=== PATIENT | female | born 1935 | race Caucasian/White ===

== ENCOUNTER 2017-08-25 08:24 | Inpatient (IN) | payer MEDICARE ==
[~2017-08-25] VITALS: Ht 162.6 cm; Wt 60.3 kg
[~2017-08-25 08:24] MED LIST: GABA100C PO; METO-282 PO; PANT40TA3 PO; TRAM50TA2 PO
[2017-08-25] MEDS ORDERED: SODIUM CHLORIDE 0.9% 1,000 ML IV ONE (08:31)
[2017-08-25 08:57] LABS: HEMATOCRIT 37.4 % (34.6-47.8); HEMOGLOBIN 12.3 g/dL (11.7-16.4); WHITE BLOOD COUNT 12.9 x10^3/uL (3.4-10)
[2017-08-25] MEDS: PLEASE ENTER HEIGHT AND WEIGHT MC SCH ×2 (09:00→17:00)
[2017-08-25] MEDS ORDERED: MAALOX/HYOSCYAMINE/LIDOCAINE 45 ML BTL PO ONE (09:00)
[2017-08-25] MEDS ORDERED: MAALOX/HYOSCYAMINE/LIDOCAINE 45 ML BTL ONE (09:04)
[2017-08-25 09:09] LABS: ASPARTATE AMINO TRANSFERASE 17 U/L (15-37); BLOOD UREA NITROGEN 23 mg/dL (7-18)
[2017-08-25 09:13] LABS: IS PT STATUS REG ER OR PRE ER? YES
[2017-08-25] MEDS ORDERED: morphine SULFATE 10 MG/ML, 1ML ONE (09:37)
[2017-08-25] MEDS ORDERED: ONDANSETRON 2MG/ML, 2ML ONE (09:37)
[2017-08-25] MEDS: MORPHINE SULFATE 4 MG/ML, 1ML IVPush PRN ×2 (09:38→10:33)
[2017-08-25] MEDS: ONDANSETRON 2MG/ML, 2ML IVPush ONE ×2 (09:38→10:33)
[2017-08-25] MEDS ORDERED: SODIUM CHLORIDE FLUSH 10ML SYR IVF PRN (11:00)
[2017-08-25] MEDS ORDERED: [UNRECOGNIZED DRUG - OTHER] (11:05)
[2017-08-25] MEDS ORDERED: calcium PO (11:05)
[2017-08-25] MEDS ORDERED: VENL37.52 PO (11:05)
[2017-08-25] MEDS ORDERED: vitamin D PO (11:05)
[2017-08-25] MEDS: HYDROmorphone 1 MG/ML, 1ML IM PRN ×2 (11:19→11:28)
[2017-08-25] MEDS ORDERED: HYDROmorphone 1 MG/ML, 1ML ONE ×2 (11:19→11:36)
[2017-08-25] MEDS ORDERED: LABETALOL 5MG/ML, 20ML IVPush PRN (12:30)
[2017-08-25] MEDS ORDERED: ONDANSETRON 2MG/ML, 2ML IVPush PRN (12:30)
[2017-08-25] MEDS ORDERED: ASPIRIN 325 MG TABLET PO ONE (12:30)
[2017-08-25] MEDS ORDERED: ONDANSETRON ODT 4 MG PO PRN (12:30)
[2017-08-25] MEDS ORDERED: NITROGLYCERIN 0.4 MG BOTTLE (25 TABS) SL PRN (12:30)
[2017-08-25] MEDS ORDERED: morphine SULFATE 10 MG/ML, 1ML IVPush PRN (12:30)
[2017-08-25] MEDS ORDERED: HYDROcodone/APAP 5/325 TABLET PO PRN (12:30)
[2017-08-25] MEDS: SODIUM CHLORIDE 0.9% 1,000 ML IV SCH (13:29)
[2017-08-25] MEDS: ASPIRIN 81 MG TABLET EC PO SCH (13:29)
[2017-08-25] MEDS: ENOXAPARIN 40 MG/0.4 ML SQ SCH (13:29)
[2017-08-25 13:37] LABS: ASPARTATE AMINO TRANSFERASE 13 U/L (15-37); BLOOD UREA NITROGEN 21 mg/dL (7-18)
[2017-08-25 13:43] LABS: IS PT STATUS REG ER OR PRE ER? NO
[2017-08-25 14:36] VITALS: BP 103/66
[2017-08-25] MEDS: GABAPENTIN 100 MG CAPSULE PO SCH ×2 (16:14→20:46)
[2017-08-25 19:23] LABS: IS PT STATUS REG ER OR PRE ER? NO
[2017-08-25 20:45] VITALS: BP 132/72
[2017-08-25] MEDS: PANTOPRAZOLE 40 MG IV IVPush SCH (20:46)
[2017-08-26 01:06] VITALS: BP 139/76
[2017-08-26 01:46] VITALS: BP_SYST 139; BP_SYST 152; BP_DIAS 72; BP_DIAS 86; BP_DIAS 87
[2017-08-26 01:47] VITALS: BP 159/82
[2017-08-26] MEDS: SODIUM CHLORIDE 0.9% 1,000 ML IV SCH (03:27)
[2017-08-26 05:18] LABS: HEMATOCRIT 30.5 % (34.6-47.8); HEMOGLOBIN 10.2 g/dL (11.7-16.4); WHITE BLOOD COUNT 7.6 x10^3/uL (3.4-10)
[2017-08-26 05:30] LABS: BLOOD UREA NITROGEN 25 mg/dL (7-18)
[2017-08-26 05:34] LABS: ASPARTATE AMINO TRANSFERASE 10 U/L (15-37)
[2017-08-26 07:17] VITALS: BP 106/63
[2017-08-26] MEDS: ASPIRIN 81 MG TABLET EC PO SCH (07:51)
[2017-08-26] MEDS: GABAPENTIN 100 MG CAPSULE PO SCH ×3 (07:51→21:29)
[2017-08-26] MEDS: PANTOPRAZOLE 40 MG IV IVPush SCH (07:51)
[2017-08-26] MEDS: VENLAFAXINE XR 37.5MG CAP.ER.24H PO SCH (07:51)
[2017-08-26] MEDS ORDERED: REGADENOSON 0.4 MG/5 ML SYRINGE ONE (08:05)
[2017-08-26 13:10] VITALS: BP 134/76
[2017-08-26] MEDS: ENOXAPARIN 40 MG/0.4 ML SQ SCH (13:31)
[2017-08-26] MEDS ORDERED: SODIUM CHLORIDE 0.9% 1,000 ML IV SCH (14:00)
[2017-08-26] MEDS ORDERED: MAALOX/HYOSCYAMINE/LIDOCAINE 45 ML BTL PO ONE (19:30)
[2017-08-26 19:39] VITALS: BP 134/72
[2017-08-26] MEDS: CALCIUM CARBONATE 500 MG TAB.CHEW PO SCH (21:29)
[2017-08-26] MEDS: FUROSEMIDE 40 MG/4 ML IV SCH (21:31)
[2017-08-27 02:33] VITALS: BP 116/66
[2017-08-27] MEDS: TEMAZEPAM 15 MG CAPSULE PO PRN ×2 (02:41→21:12)
[2017-08-27 06:25] LABS: HEMATOCRIT 32.7 % (34.6-47.8); HEMOGLOBIN 10.8 g/dL (11.7-16.4); WHITE BLOOD COUNT 7.7 x10^3/uL (3.4-10)
[2017-08-27] MEDS: FUROSEMIDE 40 MG/4 ML IV SCH (06:30)
[2017-08-27] MEDS: ASPIRIN 81 MG TABLET EC PO SCH (06:30)
[2017-08-27 06:46] LABS: ASPARTATE AMINO TRANSFERASE 24 U/L (15-37); BLOOD UREA NITROGEN 24 mg/dL (7-18)
[2017-08-27] MEDS: CALCIUM CARBONATE 500 MG TAB.CHEW PO SCH ×2 (09:28→22:08)
[2017-08-27] MEDS: GABAPENTIN 100 MG CAPSULE PO SCH ×3 (09:28→21:12)
[2017-08-27] MEDS: VENLAFAXINE XR 37.5MG CAP.ER.24H PO SCH (09:28)
[2017-08-27 09:30] VITALS: BP 131/76
[2017-08-27] MEDS ORDERED: POLYETHYLENE GLYCOL 17 GM PACKET NG ONE (10:00)
[2017-08-27] MEDS: ENOXAPARIN 40 MG/0.4 ML SQ SCH (13:36)
[2017-08-27 19:42] VITALS: BP 135/79
[2017-08-28 01:21] VITALS: BP 144/81
[2017-08-28] MEDS: ASPIRIN 81 MG TABLET EC PO SCH (06:08)
[2017-08-28 07:23] VITALS: BP 144/81
[2017-08-28] MEDS: FUROSEMIDE 40 MG/4 ML IV SCH (08:45)
[2017-08-28] MEDS: VENLAFAXINE XR 37.5MG CAP.ER.24H PO SCH (08:45)
[2017-08-28] MEDS: CALCIUM CARBONATE 500 MG TAB.CHEW PO SCH ×2 (08:45→21:03)
[2017-08-28] MEDS: GABAPENTIN 100 MG CAPSULE PO SCH ×3 (08:45→21:03)
[2017-08-28 13:12] LABS: BLOOD UREA NITROGEN 23 mg/dL (7-18)
[2017-08-28 13:49] VITALS: BP 123/72
[2017-08-28] MEDS: ENOXAPARIN 40 MG/0.4 ML SQ SCH (16:44)
[2017-08-28 18:56] VITALS: BP 148/72
[2017-08-28] MEDS: TEMAZEPAM 15 MG CAPSULE PO PRN (21:30)
[2017-08-29 01:15] VITALS: BP 145/80
[2017-08-29 04:57] LABS: HEMATOCRIT 35.8 % (34.6-47.8); HEMOGLOBIN 11.9 g/dL (11.7-16.4); WHITE BLOOD COUNT 5.8 x10^3/uL (3.4-10)
[2017-08-29 05:03] LABS: BLOOD UREA NITROGEN 26 mg/dL (7-18)
[2017-08-29] MEDS: ASPIRIN 81 MG TABLET EC PO SCH (05:48)
[2017-08-29 07:42] VITALS: BP 138/74
[2017-08-29] MEDS: GABAPENTIN 100 MG CAPSULE PO SCH (09:56)
[2017-08-29] MEDS: VENLAFAXINE XR 37.5MG CAP.ER.24H PO SCH (09:57)
[2017-08-29] MEDS: CALCIUM CARBONATE 500 MG TAB.CHEW PO SCH (09:57)
[2017-08-29 14:01] VITALS: BP 145/77
[2017-08-29] MEDS ORDERED: CALC200T24 PO (14:22)
[2017-08-29] MEDS ORDERED: ASPI-621 PO (14:22)
[2017-08-29] MEDS ORDERED: ATOR20TA9 PO (14:23)
== END 2017-08-29 15:38 | disposition home or self-care (01) | DRG 391 ==
LOC: ED 08:38 → EDIP 10:40 → 5SO 11:51 → 3NW 08-27 15:45 → DCLOUNGE 08-29 15:17
PROVIDERS: ADMIT Hospitalist; ATTEND Hospitalist
DX: K21.9 Gastro-esophageal reflux disease without esophagitis (principal); N17.0 Acute kidney failure with tubular necrosis; J90 Pleural effusion, not elsewhere classified; E44.0 Moderate protein-calorie malnutrition; G62.9 Polyneuropathy, unspecified; D64.9 Anemia, unspecified; Z88.5 Allergy status to narcotic agent; Z88.2 Allergy status to sulfonamides; Z88.8 Allergy status to other drugs, medicaments and biological substances; D72.829 Elevated white blood cell count, unspecified; E73.9 Lactose intolerance, unspecified; G89.29 Other chronic pain; H91.90 Unspecified hearing loss, unspecified ear; I10 Essential (primary) hypertension; K22.70 Barrett's esophagus without dysplasia; M06.9 Rheumatoid arthritis, unspecified; Z79.82 Long term (current) use of aspirin; Z85.3 Personal history of malignant neoplasm of breast; Z96.619 Presence of unspecified artificial shoulder joint; Z96.643 Presence of artificial hip joint, bilateral; Z98.1 Arthrodesis status; Z91.81 History of falling; Z68.22 Body mass index [BMI] 22.0-22.9, adult
CPT/HCPCS: 36415; 71010; 71020; 71275; 78452; 80048; 80053; 80061; 82040; 83036; 83690; 83735; 84484; 85025; 85610; 85730; 93005; 93017; 93306; 93922; 93925; 96361; 96372; 96374; 96375; J1170; J1650; J1940; J2405; J2785; A9502; C9113; C9898; J7030

== ENCOUNTER 2018-02-16 18:03 | Inpatient (IN) | payer MEDICARE ==
[~2018-02-16] VITALS: Ht 162.6 cm; Wt 55.0 kg
[~2018-02-16 18:03] MED LIST changes: +ASPI-621 PO; +ATOR20TA9 PO; +CALC200T24 PO; +VENL37.52 PO; +[UNRECOGNIZED DRUG - OTHER]; +calcium PO; +vitamin D PO
[2018-02-16] MEDS ORDERED: METOCLOPRAMIDE 5 MG/ML, 2ML ONE ×2 (18:29→19:58)
[2018-02-16] MEDS ORDERED: FAMOTIDINE 20 MG/2 ML ONE (18:29)
[2018-02-16] MEDS ORDERED: METOCLOPRAMIDE 5 MG/ML, 2ML IVPush ONE ×2 (18:30→20:00)
[2018-02-16] MEDS ORDERED: SODIUM CHLORIDE 0.9% 1,000ML IVBOLUS ONE (18:30)
[2018-02-16] MEDS ORDERED: SODIUM CHLORIDE FLUSH 10ML SYR IVF ONE (18:30)
[2018-02-16] MEDS ORDERED: FAMOTIDINE 20 MG/2 ML IVP ONE (18:30)
[2018-02-16 18:48] LABS: BASOPHILS # (AUTO) 0.03 x10^3/uL (0-0.1); BASOPHILS % (AUTO) 0 % (0-1); EOSINOPHILS # (AUTO) 0.01 x10^3/uL (0-0.4); EOSINOPHILS % (AUTO) 0 % (1-7); LYMPHOCYTES # (AUTO) 1.12 x10^3/uL (1-3.4); LYMPHOCYTES % (AUTO) 18 % (22-44); MD NO; MEAN CORPUSCULAR VOLUME 87.9 fL (80-100); MEAN PLATELET VOLUME 7.7 fL (7.4-10.4); MONOCYTES # (AUTO) 0.27 x10^3/uL (0.2-0.8); MONOCYTES % (AUTO) 4 % (2-9); NEUTROPHILS # (AUTO) 4.95 x10^3/uL (1.8-6.8); NEUTROPHILS % (AUTO) 78 % (42-75); PLATELET COUNT 263 x10^3/uL (130-400); RED BLOOD COUNT 4.37 x10^6/uL (3.82-5.3); RED CELL DISTRIBUTION WIDTH 17.8 % (9.6-15.2)
[2018-02-16 18:57] LABS: ALBUMIN 3.2 g/dL (3.4-5.0); ANION GAP 9 mmol/L (5-15); CALCIUM 9.5 mg/dL (8.5-10.1); CHLORIDE 107 mmol/L (98-107)
[2018-02-16 19:05] LABS: ALANINE AMINOTRANSFERASE 21 U/L (12-78); ALKALINE PHOSPHATASE 87 U/L (45-117); BILIRUBIN,TOTAL 0.9 mg/dL (0.2-1.0); CREATININE 1.12 mg/dL (0.55-1.02); TOTAL PROTEIN 7.6 g/dL (6.4-8.2)
[2018-02-16 19:25] LABS: MICROSCOPIC NOT IND
[2018-02-16 19:29] LABS: CULTURE INDICATED? NO
[2018-02-16 20:15] VITALS: BP 147/69
[2018-02-16] MEDS ORDERED: morphine SULFATE 10 MG/ML, 1ML IVPush PRN (21:00)
[2018-02-16] MEDS ORDERED: LABETALOL 5MG/ML, 20ML IVPush PRN (21:00)
[2018-02-16] MEDS ORDERED: POLYETHYLENE GLYCOL 17 GM PACKET PO PRN (21:00)
[2018-02-16] MEDS ORDERED: ONDANSETRON 2MG/ML, 2ML IVPush PRN (21:00)
[2018-02-16] MEDS ORDERED: hydrALAzine 20 MG/ML, 1ML IVPush PRN (21:00)
[2018-02-16] MEDS ORDERED: MAGNESIUM CITRATE 300ML ORAL SOL PO ONE (21:00)
[2018-02-16] MEDS ORDERED: BISACODYL 10 MG SUPP PR ONE (21:00)
[2018-02-16] MEDS ORDERED: PROMETHAZINE 25 MG/ML, 1ML IM PRN (21:00)
[2018-02-16] MEDS ORDERED: BISACODYL 10 MG SUPP PR PRN (21:00)
[2018-02-16 21:06] LABS: FREE T4 (FREE THYROXINE) 0.8 ng/dL (0.76-1.46); THYROID STIMULATING HORMONE 3.4 mIU/L (0.358-3.740)
[2018-02-16] MEDS: HEPARIN 5,000 UNITS/ML, 1ML SQ SCH (22:00)
[2018-02-16] MEDS: GABAPENTIN 100 MG CAPSULE PO SCH (22:00)
[2018-02-16] MEDS: PANTOPRAZOLE 40 MG IV IVPush SCH (22:00)
[2018-02-16] MEDS: SODIUM CHLORIDE 0.9% 1,000 ML IV SCH (22:28)
[2018-02-16 22:40] VITALS: BP 152/76
[2018-02-16] MEDS: ONDANSETRON ODT 4 MG PO PRN (23:13)
[2018-02-17 02:01] VITALS: BP 152/71
[2018-02-17 04:34] LABS: BASOPHILS # (AUTO) 0.03 x10^3/uL (0-0.1); BASOPHILS % (AUTO) 0 % (0-1); EOSINOPHILS % (AUTO) 0 % (1-7); LYMPHOCYTES # (AUTO) 1.74 x10^3/uL (1-3.4); LYMPHOCYTES % (AUTO) 23 % (22-44); MD NO; MEAN CORPUSCULAR HEMOGLOBIN 28.4 pg (27.0-34.8); MEAN CORPUSCULAR HGB CONC 32.6 g/dL (32.4-35.8); MEAN CORPUSCULAR VOLUME 87.2 fL (80-100); MEAN PLATELET VOLUME 7.9 fL (7.4-10.4); MONOCYTES # (AUTO) 0.49 x10^3/uL (0.2-0.8); MONOCYTES % (AUTO) 7 % (2-9); NEUTROPHILS # (AUTO) 5.31 x10^3/uL (1.8-6.8); NEUTROPHILS % (AUTO) 70 % (42-75); PLATELET COUNT 239 x10^3/uL (130-400); RED BLOOD COUNT 3.96 x10^6/uL (3.82-5.3); RED CELL DISTRIBUTION WIDTH 18.2 % (9.6-15.2)
[2018-02-17 04:46] LABS: CHLORIDE 108 mmol/L (98-107)
[2018-02-17 04:53] LABS: ALANINE AMINOTRANSFERASE 19 U/L (12-78); ALBUMIN 2.9 g/dL (3.4-5.0); ALKALINE PHOSPHATASE 73 U/L (45-117); ANION GAP 8 mmol/L (5-15); BILIRUBIN,TOTAL 0.5 mg/dL (0.2-1.0); CALCIUM 8.5 mg/dL (8.5-10.1); CHOL/HDL RATIO 2.3; CHOLESTEROL, TOTAL 192 mg/dL (140-239); CREATININE 0.98 mg/dL (0.55-1.02); HDL CHOL % 43 % (28-40); HDL CHOLESTEROL (DIRECT) 82 mg/dL (40-60); TOTAL PROTEIN 6.7 g/dL (6.4-8.2); TRIGLYCERIDES 78 mg/dL (50-200); VLDL CHOLESTEROL 16 mg/dL (0-25)
[2018-02-17 04:54] LABS: LDL CHOLESTEROL,CALCULATED 94 mg/dL (54-169); LDL/HDL RATIO 1.1 (0.5-3.0)
[2018-02-17] MEDS: ONDANSETRON ODT 4 MG PO PRN (05:20)
[2018-02-17] MEDS: SODIUM CHLORIDE 0.9% 1,000 ML IV SCH (05:20)
[2018-02-17] MEDS: HEPARIN 5,000 UNITS/ML, 1ML SQ SCH ×3 (05:21→21:08)
[2018-02-17 08:35] VITALS: BP 171/82
[2018-02-17] MEDS: GABAPENTIN 100 MG CAPSULE PO SCH ×3 (10:14→21:08)
[2018-02-17] MEDS: PANTOPRAZOLE 40 MG IV IVPush SCH ×2 (10:14→21:07)
[2018-02-17] MEDS: SENNA/DOCUSATE TABLET PO SCH (10:15)
[2018-02-17] MEDS ORDERED: MAGNESIUM CITRATE 300ML ORAL SOL PO ONE (12:30)
[2018-02-17 15:17] VITALS: BP 159/80
[2018-02-17 16:48] LABS: MICROSCOPIC AUTO
[2018-02-17 16:49] LABS: CULTURE INDICATED? YES
[2018-02-17 19:02] VITALS: BP 160/79
[2018-02-17 23:57] VITALS: BP 166/79
[2018-02-18] MEDS: HEPARIN 5,000 UNITS/ML, 1ML SQ SCH ×3 (05:07→21:34)
[2018-02-18 07:38] VITALS: BP 144/85
[2018-02-18] MEDS: SENNA/DOCUSATE TABLET PO SCH (08:05)
[2018-02-18] MEDS: GABAPENTIN 100 MG CAPSULE PO SCH ×3 (08:05→21:34)
[2018-02-18] MEDS: PANTOPRAZOLE 40 MG IV IVPush SCH ×2 (08:05→21:33)
[2018-02-18 13:03] VITALS: BP 159/80
[2018-02-18] MEDS ORDERED: KETOROLAC 30 MG/1 ML IVPush PRN (16:00)
[2018-02-18 19:02] VITALS: BP 152/79
[2018-02-19 00:49] VITALS: BP 175/79
[2018-02-19] MEDS: HEPARIN 5,000 UNITS/ML, 1ML SQ SCH ×2 (05:21→13:00)
[2018-02-19 07:07] VITALS: BP 147/76
[2018-02-19] MEDS: PANTOPRAZOLE 40 MG IV IVPush SCH (08:05)
[2018-02-19] MEDS: SENNA/DOCUSATE TABLET PO SCH (08:06)
[2018-02-19] MEDS: GABAPENTIN 100 MG CAPSULE PO SCH ×2 (08:06→16:05)
[2018-02-19 13:27] VITALS: BP 152/79
[2018-02-19] MEDS ORDERED: PANTOPROZOLE 40MG TABLET PO SCH (21:00)
== END 2018-02-19 17:10 | disposition home health service (06) | DRG 392 ==
LOC: ED 20:48 → 3NW 21:39
PROVIDERS: ADMIT Internal Medicine; ATTEND Internal Medicine
DX: K59.00 Constipation, unspecified (principal); E44.0 Moderate protein-calorie malnutrition; G62.9 Polyneuropathy, unspecified; E86.0 Dehydration; R11.2 Nausea with vomiting, unspecified; I12.9 Hypertensive chronic kidney disease with stage 1 through stage 4 chronic kidney disease, or unspecified chronic kidney disease; K21.9 Gastro-esophageal reflux disease without esophagitis; G43.909 Migraine, unspecified, not intractable, without status migrainosus; G89.29 Other chronic pain; M06.9 Rheumatoid arthritis, unspecified; N18.3 Chronic kidney disease, stage 3 (moderate); Z85.3 Personal history of malignant neoplasm of breast; Z90.12 Acquired absence of left breast and nipple; Z98.1 Arthrodesis status; Z96.643 Presence of artificial hip joint, bilateral; Z96.612 Presence of left artificial shoulder joint; Z96.611 Presence of right artificial shoulder joint; Z90.710 Acquired absence of both cervix and uterus; Z88.6 Allergy status to analgesic agent; Z88.2 Allergy status to sulfonamides; Z88.8 Allergy status to other drugs, medicaments and biological substances; Z68.20 Body mass index [BMI] 20.0-20.9, adult
CPT/HCPCS: 36415; 74176; 80053; 80061; 81001; 81003; 83036; 83690; 83735; 84439; 84443; 85025; 87086; 96361; 96374; 96375; 96376; 99285; J1644; J1885; J2550; Q0162; C9113; J0360; J2270; J2765; J7030; S0028

== ENCOUNTER 2018-07-28 19:14 | Emergency (ER) | payer MEDICARE ==
[~2018-07-28] VITALS: Ht 162.6 cm; Wt 58.3 kg
[2018-07-28 19:31] VITALS: BP 167/74
[2018-07-28 19:54] LABS: BASOPHILS # (AUTO) 0.05 x10^3/uL (0-0.1); BASOPHILS % (AUTO) 0 % (0-1); EOSINOPHILS # (AUTO) 0.06 x10^3/uL (0-0.4); EOSINOPHILS % (AUTO) 1 % (1-7); LYMPHOCYTES # (AUTO) 1.94 x10^3/uL (1-3.4); LYMPHOCYTES % (AUTO) 18 % (22-44); MD NO; MEAN CORPUSCULAR HEMOGLOBIN 30.1 pg (27.0-34.8); MEAN CORPUSCULAR VOLUME 91.2 fL (80-100); MEAN PLATELET VOLUME 7.4 fL (7.4-10.4); MONOCYTES # (AUTO) 0.62 x10^3/uL (0.2-0.8); MONOCYTES % (AUTO) 6 % (2-9); NEUTROPHILS # (AUTO) 8.43 x10^3/uL (1.8-6.8); NEUTROPHILS % (AUTO) 76 % (42-75); PLATELET COUNT 292 x10^3/uL (130-400); RED BLOOD COUNT 3.86 x10^6/uL (3.82-5.3); RED CELL DISTRIBUTION WIDTH 17.7 % (9.6-15.2)
[2018-07-28 20:03] LABS: ALANINE AMINOTRANSFERASE 21 U/L (12-78); ALBUMIN 3.2 g/dL (3.4-5.0); ANION GAP 8 mmol/L (5-15); CALCIUM 8.8 mg/dL (8.5-10.1); CHLORIDE 109 mmol/L (98-107); CREATININE 1.27 mg/dL (0.55-1.02)
[2018-07-28 20:06] LABS: ALKALINE PHOSPHATASE 112 U/L (45-117); BILIRUBIN,TOTAL 0.4 mg/dL (0.2-1.0); TOTAL PROTEIN 7.6 g/dL (6.4-8.2)
[2018-07-28] MEDS ORDERED: CLINDAMYCIN 300 MG CAPSULE ONE (20:11)
[2018-07-28] MEDS ORDERED: CLINDAMYCIN 300 MG CAPSULE PO ONE (20:30)
== END 2018-07-28 21:53 | disposition home or self-care (01) ==
LOC: ED 21:47
DX: L03.116 Cellulitis of left lower limb (principal); I10 Essential (primary) hypertension; G89.29 Other chronic pain
CPT/HCPCS: 36415; 80053; 85025; 87070; 87077; 87186; 87205; 99285

== ENCOUNTER 2018-10-03 15:15 | Inpatient (IN) | payer MEDICARE ==
[~2018-10-03] VITALS: Ht 162.6 cm; Wt 60.4 kg
[~2018-10-03 15:15] MED LIST changes: -ASPI-621 PO; +ASPI81TA45 PO; +ATOR20TA37 PO; -ATOR20TA9 PO
--- NOTE | 2018-10-03 15:31 | NUR ---
DR MUKHERJEE AT BEDSIDE. CULTURE OBTAINED FROM LLE WOUND.
[2018-10-03] MEDS ORDERED: HYDROmorphone 2 MG/ML, 1ML ONE (15:55)
[2018-10-03] MEDS ORDERED: VANCOMYCIN 1,200 MG in SODIUM CHLORIDE 0.9% 250 ML IV ONE (16:00)
[2018-10-03] MEDS ORDERED: HYDROmorphone 2 MG/ML, 1ML IVPush ONE (16:00)
[2018-10-03] MEDS ORDERED: PHARMACOKINETIC CONSULTATION MC ONE ×2 (16:00→20:30)
[2018-10-03] MEDS ORDERED: PIPERACILLIN/TAZO/PMX 3.375GM 50 ML IVPB ONE (16:00)
[2018-10-03] MEDS ORDERED: VANCOMYCIN PER PHARMACY IV ONE (16:00)
[2018-10-03] MEDS ORDERED: PIPERACILLIN/TAZO/PMX 3.375GM 50 ML ONE (16:17)
[2018-10-03 16:20] LABS: BASOPHILS # (AUTO) 0.02 x10^3/uL (0-0.1); BASOPHILS % (AUTO) 0 % (0-1); EOSINOPHILS # (AUTO) 0.02 x10^3/uL (0-0.4); EOSINOPHILS % (AUTO) 0 % (1-7); LYMPHOCYTES # (AUTO) 1.58 x10^3/uL (1-3.4); LYMPHOCYTES % (AUTO) 17 % (22-44); MD NO; MEAN CORPUSCULAR HEMOGLOBIN 29.7 pg (27.0-34.8); MEAN CORPUSCULAR HGB CONC 32.1 g/dL (32.4-35.8); MEAN CORPUSCULAR VOLUME 92.4 fL (80-100); MONOCYTES # (AUTO) 0.45 x10^3/uL (0.2-0.8); MONOCYTES % (AUTO) 5 % (2-9); NEUTROPHILS # (AUTO) 7.33 x10^3/uL (1.8-6.8); NEUTROPHILS % (AUTO) 78 % (42-75); PLATELET COUNT 325 x10^3/uL (130-400); RED BLOOD COUNT 4.02 x10^6/uL (3.82-5.3); RED CELL DISTRIBUTION WIDTH 17.3 % (9.6-15.2)
--- NOTE | 2018-10-03 16:23 | NUR ---
US TECH AT BEDSIDE
[2018-10-03 16:26] LABS: INTERNATIONAL NORMALIZED RATIO 0.97 (0.93-1.1); PROTHROMBIN TIME 10.3 Seconds (9.6-11.5)
[2018-10-03 16:29] LABS: ALANINE AMINOTRANSFERASE 24 U/L (12-78); ALBUMIN 3.3 g/dL (3.4-5.0); ANION GAP 9 mmol/L (5-15); CALCIUM 8.7 mg/dL (8.5-10.1); CHLORIDE 108 mmol/L (98-107)
[2018-10-03 16:30] LABS: HCT (SEDRATE) 37.1 % (34.6-47.8)
--- NOTE | 2018-10-03 16:30 | NUR ---
PT WRITHING IN BED, WON'T HOLD STILL FOR US D/T PAIN. AWARE. 1 MG ATIVAN ORDERED.
[2018-10-03 16:35] LABS: ALKALINE PHOSPHATASE 101 U/L (45-117); BILIRUBIN,TOTAL 0.3 mg/dL (0.2-1.0); TOTAL PROTEIN 7.7 g/dL (6.4-8.2)
[2018-10-03] MEDS ORDERED: LORazepam 2 MG/ML, 1ML ONE (16:36)
[2018-10-03] MEDS ORDERED: SODIUM CHLORIDE 0.9% 1,000 ML IV SCH (17:25)
[2018-10-03] MEDS ORDERED: hydrALAzine 20 MG/ML, 1ML IVPush PRN (17:30)
[2018-10-03] MEDS ORDERED: BISACODYL 10 MG SUPP PR PRN (17:30)
[2018-10-03] MEDS: PIPERACILLIN/TAZO/PMX 3.375GM 50 ML IV SCH ×2 (17:30→23:23)
[2018-10-03] MEDS ORDERED: ONDANSETRON ODT 4 MG PO PRN (17:30)
[2018-10-03] MEDS ORDERED: ENALAPRILAT 1.25 MG/ML, 2ML IVPush PRN (17:30)
[2018-10-03] MEDS ORDERED: VANCOMYCIN PER PHARMACY MC PRN (17:30)
[2018-10-03] MEDS ORDERED: ACETAMINOPHEN 325 MG TABLET PO PRN (17:30)
[2018-10-03] MEDS ORDERED: DOCUSATE 100 MG CAPSULE PO PRN (17:30)
[2018-10-03] MEDS ORDERED: ONDANSETRON 2MG/ML, 2ML IVPush PRN (17:30)
--- NOTE | 2018-10-03 17:42 | NUR ---
pt drowsy from dilaudid, ativan, but arouseable to stimuli. vs stable.
[2018-10-03] MEDS ORDERED: LORazepam 2 MG/ML, 1ML IVPush ONE (18:00)
[2018-10-03] MEDS: morphine SULFATE 10 MG/ML, 1ML IVPush PRN (20:16)
[2018-10-03] MEDS ORDERED: PHARMACOKINETIC MONITORING MC PRN (20:30)
[2018-10-03] MEDS ORDERED: VANCOMYCIN 1,200 MG in SODIUM CHLORIDE 0.9% 250 ML IV SCH (20:30)
[2018-10-03 20:37] VITALS: BP 156/75
[2018-10-03] MEDS: GABAPENTIN 100 MG CAPSULE PO SCH (22:01)
[2018-10-03] MEDS: HEPARIN 5,000 UNITS/ML, 1ML SQ SCH (22:01)
[2018-10-04] MEDS: morphine SULFATE 10 MG/ML, 1ML IVPush PRN ×4 (00:32→17:26)
[2018-10-04 03:19] VITALS: BP 148/70
[2018-10-04 05:00] LABS: BASOPHILS # (AUTO) 0.02 x10^3/uL (0-0.1); BASOPHILS % (AUTO) 0 % (0-1); EOSINOPHILS % (AUTO) 0 % (1-7); LYMPHOCYTES # (AUTO) 0.94 x10^3/uL (1-3.4); LYMPHOCYTES % (AUTO) 11 % (22-44); MD NO; MEAN CORPUSCULAR HEMOGLOBIN 30.4 pg (27.0-34.8); MEAN CORPUSCULAR HGB CONC 33.2 g/dL (32.4-35.8); MEAN CORPUSCULAR VOLUME 91.6 fL (80-100); MONOCYTES # (AUTO) 0.57 x10^3/uL (0.2-0.8); MONOCYTES % (AUTO) 6 % (2-9); NEUTROPHILS # (AUTO) 7.43 x10^3/uL (1.8-6.8); NEUTROPHILS % (AUTO) 83 % (42-75); PLATELET COUNT 244 x10^3/uL (130-400); RED BLOOD COUNT 3.51 x10^6/uL (3.82-5.3); RED CELL DISTRIBUTION WIDTH 17.6 % (9.6-15.2)
[2018-10-04 05:08] LABS: ANION GAP 7 mmol/L (5-15); CALCIUM 7.9 mg/dL (8.5-10.1); CHLORIDE 110 mmol/L (98-107); CREATININE 1.14 mg/dL (0.55-1.02)
[2018-10-04] MEDS: PIPERACILLIN/TAZO/PMX 3.375GM 50 ML IV SCH ×4 (05:32→23:40)
[2018-10-04] MEDS: HEPARIN 5,000 UNITS/ML, 1ML SQ SCH ×3 (05:33→20:48)
[2018-10-04 06:55] VITALS: BP 137/71
[2018-10-04] MEDS: PANTOPROZOLE 40MG TABLET PO SCH (07:44)
[2018-10-04] MEDS: SENNA/DOCUSATE TABLET PO SCH (09:13)
[2018-10-04] MEDS: GABAPENTIN 100 MG CAPSULE PO SCH ×3 (09:13→20:47)
[2018-10-04 13:04] VITALS: BP 116/67
[2018-10-04] MEDS ORDERED: SODIUM CHLORIDE 0.9% 1,000 ML IV SCH (17:30)
[2018-10-04] MEDS: SODIUM CHLORIDE 0.9% 1,000 ML IV SCH (17:35)
[2018-10-04 19:45] VITALS: BP 124/71
[2018-10-05 02:21] VITALS: BP 147/79
[2018-10-05 05:11] LABS: BASOPHILS # (AUTO) 0.04 x10^3/uL (0-0.1); BASOPHILS % (AUTO) 1 % (0-1); EOSINOPHILS # (AUTO) 0.13 x10^3/uL (0-0.4); EOSINOPHILS % (AUTO) 2 % (1-7); LYMPHOCYTES # (AUTO) 1.62 x10^3/uL (1-3.4); LYMPHOCYTES % (AUTO) 23 % (22-44); MD NO; MEAN CORPUSCULAR HEMOGLOBIN 30.4 pg (27.0-34.8); MEAN CORPUSCULAR VOLUME 92.2 fL (80-100); MEAN PLATELET VOLUME 6.8 fL (7.4-10.4); MONOCYTES # (AUTO) 0.53 x10^3/uL (0.2-0.8); MONOCYTES % (AUTO) 8 % (2-9); NEUTROPHILS # (AUTO) 4.62 x10^3/uL (1.8-6.8); NEUTROPHILS % (AUTO) 67 % (42-75); PLATELET COUNT 234 x10^3/uL (130-400); RED BLOOD COUNT 3.45 x10^6/uL (3.82-5.3)
[2018-10-05 05:13] LABS: ANION GAP 8 mmol/L (5-15); CALCIUM 8.3 mg/dL (8.5-10.1); CHLORIDE 110 mmol/L (98-107); CREATININE 1.17 mg/dL (0.55-1.02)
[2018-10-05] MEDS: PIPERACILLIN/TAZO/PMX 3.375GM 50 ML IV SCH ×3 (05:20→17:43)
[2018-10-05] MEDS: HEPARIN 5,000 UNITS/ML, 1ML SQ SCH ×3 (05:21→20:46)
[2018-10-05 07:10] VITALS: BP 113/67
[2018-10-05] MEDS: SODIUM CHLORIDE 0.9% 1,000 ML IV SCH (07:14)
[2018-10-05] MEDS: PANTOPROZOLE 40MG TABLET PO SCH (07:40)
[2018-10-05] MEDS: morphine SULFATE 10 MG/ML, 1ML IVPush PRN (07:40)
[2018-10-05] MEDS: SENNA/DOCUSATE TABLET PO SCH (09:00)
[2018-10-05] MEDS: GABAPENTIN 100 MG CAPSULE PO SCH ×3 (09:11→20:46)
[2018-10-05 12:38] VITALS: BP 107/58
[2018-10-05] MEDS ORDERED: GADOBUTROL 7.5 MMOL/7.5 ML PFS ONE (14:25)
[2018-10-05 19:45] VITALS: BP 105/67
[2018-10-06] MEDS: PIPERACILLIN/TAZO/PMX 3.375GM 50 ML IV SCH ×5 (00:01→23:42)
[2018-10-06 01:17] VITALS: BP 123/74
[2018-10-06] MEDS: SODIUM CHLORIDE 0.9% 1,000 ML IV SCH ×2 (02:46→13:34)
[2018-10-06] MEDS: morphine SULFATE 10 MG/ML, 1ML IVPush PRN ×3 (05:28→21:05)
[2018-10-06] MEDS: HEPARIN 5,000 UNITS/ML, 1ML SQ SCH ×3 (05:29→22:14)
[2018-10-06 07:03] VITALS: BP 112/59
[2018-10-06] MEDS: GABAPENTIN 100 MG CAPSULE PO SCH ×3 (08:36→21:09)
[2018-10-06] MEDS: SENNA/DOCUSATE TABLET PO SCH (08:36)
[2018-10-06] MEDS: PANTOPROZOLE 40MG TABLET PO SCH (08:37)
[2018-10-06 13:29] VITALS: BP 121/71
[2018-10-06 20:48] VITALS: BP 147/75
[2018-10-07 02:16] VITALS: BP 147/80
[2018-10-07] MEDS: SODIUM CHLORIDE 0.9% 1,000 ML IV SCH (04:34)
[2018-10-07] MEDS: PIPERACILLIN/TAZO/PMX 3.375GM 50 ML IV SCH (05:52)
[2018-10-07] MEDS: HEPARIN 5,000 UNITS/ML, 1ML SQ SCH ×3 (05:52→22:52)
[2018-10-07 07:24] VITALS: BP 130/79
[2018-10-07] MEDS: SENNA/DOCUSATE TABLET PO SCH (08:00)
[2018-10-07] MEDS: GABAPENTIN 100 MG CAPSULE PO SCH ×3 (08:00→21:06)
[2018-10-07] MEDS: PANTOPROZOLE 40MG TABLET PO SCH (08:00)
[2018-10-07] MEDS: AMOXICILLIN/CLAV 875-125MG TABLET PO SCH ×2 (10:52→21:06)
[2018-10-07 13:58] VITALS: BP 126/76
[2018-10-07 20:31] VITALS: BP 160/90
[2018-10-07 20:57] VITALS: BP 152/79
[2018-10-07] MEDS: morphine SULFATE 10 MG/ML, 1ML IVPush PRN (21:11)
[2018-10-08 03:00] VITALS: BP 127/70
[2018-10-08 06:21] VITALS: BP 136/83
[2018-10-08] MEDS: HEPARIN 5,000 UNITS/ML, 1ML SQ SCH ×2 (06:26→14:00)
[2018-10-08 08:35] VITALS: BP 118/65
[2018-10-08] MEDS: AMOXICILLIN/CLAV 875-125MG TABLET PO SCH (08:42)
[2018-10-08] MEDS: PANTOPROZOLE 40MG TABLET PO SCH (08:42)
[2018-10-08] MEDS: SENNA/DOCUSATE TABLET PO SCH ×2 (08:44→08:45)
[2018-10-08] MEDS: GABAPENTIN 100 MG CAPSULE PO SCH (08:44)
[2018-10-08] MEDS ORDERED: AMOX1TAB12 PO (09:40)
== END 2018-10-08 14:37 | disposition home health service (06) | DRG 602 ==
LOC: ED 17:10 → EDIP 17:19 → 3NW 19:53
PROVIDERS: ADMIT Hospitalist; ATTEND Hospitalist
DX: L03.115 Cellulitis of right lower limb (principal); R53.2 Functional quadriplegia; N17.9 Acute kidney failure, unspecified; B95.61 Methicillin susceptible Staphylococcus aureus infection as the cause of diseases classified elsewhere; S91.302A Unspecified open wound, left foot, initial encounter; L03.116 Cellulitis of left lower limb; I12.9 Hypertensive chronic kidney disease with stage 1 through stage 4 chronic kidney disease, or unspecified chronic kidney disease; I77.1 Stricture of artery; B96.20 Unspecified Escherichia coli [E. coli] as the cause of diseases classified elsewhere; B95.2 Enterococcus as the cause of diseases classified elsewhere; N18.3 Chronic kidney disease, stage 3 (moderate); M06.9 Rheumatoid arthritis, unspecified; G57.93 Unspecified mononeuropathy of bilateral lower limbs; G56.93 Unspecified mononeuropathy of bilateral upper limbs; K21.9 Gastro-esophageal reflux disease without esophagitis; Z96.612 Presence of left artificial shoulder joint; Z96.611 Presence of right artificial shoulder joint; X58.XXXA Exposure to other specified factors, initial encounter; I73.9 Peripheral vascular disease, unspecified; Z66 Do not resuscitate; Z90.710 Acquired absence of both cervix and uterus; Z90.12 Acquired absence of left breast and nipple; Z85.3 Personal history of malignant neoplasm of breast; Z88.2 Allergy status to sulfonamides; Z88.5 Allergy status to narcotic agent; Z88.8 Allergy status to other drugs, medicaments and biological substances; Z98.1 Arthrodesis status; Y93.89 Activity, other specified; Y92.89 Other specified places as the place of occurrence of the external cause; Y99.8 Other external cause status
CPT/HCPCS: 36415; 80048; 80053; 80202; 83605; 85025; 85610; 85651; 86140; 87040; 87070; 87077; 87186; 87205; 93922; 93925; 93970; 96365; 96366; 96375; 97161; 99285; A9585; G0378; J1170; J1644; J2543; J3370; J2060; J2270; J7030; J7050

== ENCOUNTER 2018-10-28 16:22 | Inpatient (IN) | payer MEDICARE ==
[~2018-10-28] VITALS: Ht 162.6 cm; Wt 58.6 kg
[~2018-10-28 16:22] MED LIST changes: +AMOX1TAB12 PO
[2018-10-28 17:03] LABS: BASOPHILS # (AUTO) 0.05 x10^3/uL (0-0.1); BASOPHILS % (AUTO) 1 % (0-1); EOSINOPHILS # (AUTO) 0.02 x10^3/uL (0-0.4); EOSINOPHILS % (AUTO) 0 % (1-7); LYMPHOCYTES # (AUTO) 1.57 x10^3/uL (1-3.4); LYMPHOCYTES % (AUTO) 16 % (22-44); MD NO; MEAN CORPUSCULAR HEMOGLOBIN 30.3 pg (27.0-34.8); MEAN CORPUSCULAR HGB CONC 33.3 g/dL (32.4-35.8); MEAN CORPUSCULAR VOLUME 91.2 fL (80-100); MONOCYTES # (AUTO) 0.65 x10^3/uL (0.2-0.8); MONOCYTES % (AUTO) 7 % (2-9); NEUTROPHILS # (AUTO) 7.44 x10^3/uL (1.8-6.8); NEUTROPHILS % (AUTO) 77 % (42-75); PLATELET COUNT 297 x10^3/uL (130-400); RED BLOOD COUNT 3.89 x10^6/uL (3.82-5.3); RED CELL DISTRIBUTION WIDTH 17.2 % (9.6-15.2)
[2018-10-28 17:16] LABS: ALANINE AMINOTRANSFERASE 20 U/L (12-78); ALBUMIN 3.3 g/dL (3.4-5.0); ANION GAP 8 mmol/L (5-15); CALCIUM 9.5 mg/dL (8.5-10.1); CHLORIDE 104 mmol/L (98-107); CREATININE 1.28 mg/dL (0.55-1.02)
--- NOTE | 2018-10-28 17:19 | NUR ---
PT TO ROOM WITH CANE AND STANDBY ASSISTANCE. PT WALKS WITH A SHUFFLING GAIT.
[2018-10-28 17:20] LABS: ALKALINE PHOSPHATASE 93 U/L (45-117); BILIRUBIN,TOTAL 0.5 mg/dL (0.2-1.0); TOTAL PROTEIN 7.6 g/dL (6.4-8.2)
[2018-10-28] MEDS ORDERED: AMPICILLIN/SULBACTAM 3 GM IM ONE (18:00)
--- NOTE | 2018-10-28 18:09 | NUR ---
ASSUMED CARE OF PT. LAB AT BEDSIDE. BLOOD CULTURES DRAWN X 2.
[2018-10-28] MEDS ORDERED: AMPICILLIN/SULBACTAM 3 GM in SODIUM CHLORIDE 0.9% 100 ML IV ONE (18:30)
--- NOTE | 2018-10-28 18:36 | NUR ---
EDWINA MOORE IS ASSISTING THE PRIMARY CARE RN MANDO WITH THE PT.'S CARE. IV ACCESS ESTABLISHED. BLOOD CULTURES WERE DRAWN X 2 THEN IV ABX WERE STARTED, INFUSING ON THE PUMP. PT. WAS REPOSITIONED AND HAS CONTINUED PAIN. DISCUSSED WITH MD. PT.'S VITALS MONTIORED. SIDERAILS ARE UP X 2, WITH THE CALL LIGHT IN PLACE. PT.'S HOB IS ELEVATED GREATER THAN 30 DEGREES.
--- NOTE | 2018-10-28 18:38 | NUR ---
PT. HAS BLANKETS FOR WARMTH.
[2018-10-28] MEDS ORDERED: MORPHINE SULFATE 4 MG/ML, 1ML ONE ×2 (18:44→20:25)
[2018-10-28] MEDS: MORPHINE SULFATE 4 MG/ML, 1ML IVPush PRN ×2 (18:47→20:30)
[2018-10-28] MEDS ORDERED: ONDANSETRON 2MG/ML, 2ML IVPush ONE (19:00)
--- NOTE | 2018-10-28 19:14 | NUR ---
REPORT FROM NELL BLAND.
--- NOTE | 2018-10-28 19:17 | NUR ---
PT AT IMAGING.
--- NOTE | 2018-10-28 19:47 | NUR ---
PT RETURN FROM IMAGING. PT REPORTS PAIN AND REQUESTING PAIN MED.
[2018-10-28] MEDS ORDERED: ONDANSETRON 2MG/ML, 2ML IVPush PRN (21:00)
[2018-10-28] MEDS ORDERED: ACETAMINOPHEN 325 MG TABLET PO PRN (21:00)
[2018-10-28] MEDS ORDERED: VANCOMYCIN PMX 1GM/200ML 200 ML IV ONE (21:00)
[2018-10-28] MEDS ORDERED: DOCUSATE 100 MG CAPSULE PO PRN (21:00)
[2018-10-28] MEDS ORDERED: VANCOMYCIN PER PHARMACY MC PRN (21:00)
[2018-10-28] MEDS ORDERED: PROMETHAZINE 25 MG/ML, 1ML IM PRN (21:00)
[2018-10-28] MEDS ORDERED: BISACODYL 10 MG SUPP PR PRN (21:00)
[2018-10-28] MEDS ORDERED: POLYETHYLENE GLYCOL 17 GM PACKET PO PRN (21:00)
[2018-10-28] MEDS ORDERED: ONDANSETRON ODT 4 MG PO PRN (21:00)
--- NOTE | 2018-10-28 21:02 | NUR ---
REPORT TO BELEN BLAND. PT TO GO TO ROOM.
[2018-10-28 21:44] VITALS: BP 175/83
[2018-10-28 21:55] LABS: FREE T4 (FREE THYROXINE) 0.79 ng/dL (0.76-1.46); THYROID STIMULATING HORMONE 3.7 mIU/L (0.358-3.740)
[2018-10-28 22:15] LABS: HEMOGLOBIN A1C 5.6 % (4.2-6.3)
[2018-10-28] MEDS ORDERED: PHARMACOKINETIC MONITORING MC PRN (22:30)
[2018-10-28] MEDS ORDERED: PHARMACOKINETIC CONSULTATION MC ONE (22:30)
[2018-10-28] MEDS: HEPARIN 5,000 UNITS/ML, 1ML SQ SCH (22:58)
[2018-10-28] MEDS: GABAPENTIN 100 MG CAPSULE PO SCH (22:58)
[2018-10-28] MEDS: LACTOBACILLUS CHEW TABLET PO SCH (22:58)
[2018-10-28] MEDS: PIPERACILLIN/TAZO/PMX 3.375GM 50 ML IV SCH (23:00)
[2018-10-28] MEDS ORDERED: ENALAPRILAT 1.25 MG/ML, 2ML IV PRN (23:00)
[2018-10-28 23:03] LABS: HCT (SEDRATE) 35.5 % (34.6-47.8)
[2018-10-29] MEDS: morphine SULFATE 10 MG/ML, 1ML IVPush PRN ×2 (02:03→20:25)
[2018-10-29 02:11] VITALS: BP 143/76
[2018-10-29] MEDS: PIPERACILLIN/TAZO/PMX 3.375GM 50 ML IV SCH ×4 (02:12→20:26)
[2018-10-29] MEDS: VANCOMYCIN 1,100 MG in SODIUM CHLORIDE 0.9% 250 ML IV SCH (02:57)
[2018-10-29 04:58] LABS: BASOPHILS # (AUTO) 0.06 x10^3/uL (0-0.1); BASOPHILS % (AUTO) 1 % (0-1); EOSINOPHILS # (AUTO) 0.03 x10^3/uL (0-0.4); EOSINOPHILS % (AUTO) 0 % (1-7); LYMPHOCYTES # (AUTO) 1.66 x10^3/uL (1-3.4); LYMPHOCYTES % (AUTO) 20 % (22-44); MD NO; MEAN CORPUSCULAR HEMOGLOBIN 30.8 pg (27.0-34.8); MEAN CORPUSCULAR HGB CONC 33.5 g/dL (32.4-35.8); MONOCYTES # (AUTO) 0.68 x10^3/uL (0.2-0.8); MONOCYTES % (AUTO) 8 % (2-9); NEUTROPHILS # (AUTO) 5.78 x10^3/uL (1.8-6.8); NEUTROPHILS % (AUTO) 70 % (42-75); PLATELET COUNT 239 x10^3/uL (130-400); RED BLOOD COUNT 3.53 x10^6/uL (3.82-5.3); RED CELL DISTRIBUTION WIDTH 17.1 % (9.6-15.2)
[2018-10-29 05:08] LABS: ALANINE AMINOTRANSFERASE 17 U/L (12-78); ALBUMIN 2.7 g/dL (3.4-5.0); ANION GAP 7 mmol/L (5-15); CALCIUM 8.8 mg/dL (8.5-10.1); CHLORIDE 105 mmol/L (98-107); CHOLESTEROL, TOTAL 148 mg/dL (140-239); CREATININE 1.03 mg/dL (0.55-1.02)
[2018-10-29 05:11] LABS: ALKALINE PHOSPHATASE 78 U/L (45-117); BILIRUBIN,TOTAL 0.8 mg/dL (0.2-1.0); CHOL/HDL RATIO 1.8; HDL CHOL % 56 % (28-40); HDL CHOLESTEROL (DIRECT) 83 mg/dL (40-60); LDL CHOLESTEROL,CALCULATED 44 mg/dL (54-169); LDL/HDL RATIO 0.5 (0.5-3.0); TOTAL PROTEIN 6.5 g/dL (6.4-8.2); TRIGLYCERIDES 103 mg/dL (50-200); VLDL CHOLESTEROL 21 mg/dL (0-25)
[2018-10-29 06:54] VITALS: BP 147/73
[2018-10-29] MEDS: HEPARIN 5,000 UNITS/ML, 1ML SQ SCH ×2 (07:57→16:20)
[2018-10-29] MEDS: GABAPENTIN 100 MG CAPSULE PO SCH ×3 (07:58→20:26)
[2018-10-29] MEDS: LACTOBACILLUS CHEW TABLET PO SCH ×3 (07:58→20:26)
[2018-10-29 16:02] VITALS: BP 129/68
[2018-10-29 18:41] VITALS: BP 135/69
[2018-10-30] MEDS: HEPARIN 5,000 UNITS/ML, 1ML SQ SCH ×3 (01:22→16:22)
[2018-10-30] MEDS: PIPERACILLIN/TAZO/PMX 3.375GM 50 ML IV SCH ×4 (01:23→21:21)
[2018-10-30 02:00] VITALS: BP 120/65
[2018-10-30] MEDS: LACTOBACILLUS CHEW TABLET PO SCH ×3 (08:06→21:21)
[2018-10-30] MEDS: GABAPENTIN 100 MG CAPSULE PO SCH ×3 (08:07→21:22)
[2018-10-30 08:28] VITALS: BP 144/73
[2018-10-30] MEDS: VANCOMYCIN 1,100 MG in SODIUM CHLORIDE 0.9% 250 ML IV SCH (11:46)
[2018-10-30 14:58] VITALS: BP 128/71
[2018-10-30 18:11] LABS: CLOSTRIDIUM DIFFICILE ANTIGEN NEGATIVE; CLOSTRIDIUM DIFFICILE TOXIN NEGATIVE (Negative)
[2018-10-30 20:02] VITALS: BP 125/73
[2018-10-30] MEDS: morphine SULFATE 10 MG/ML, 1ML IVPush PRN (21:28)
[2018-10-31 00:48] VITALS: BP 110/53
[2018-10-31] MEDS: HEPARIN 5,000 UNITS/ML, 1ML SQ SCH ×3 (02:18→17:44)
[2018-10-31] MEDS: PIPERACILLIN/TAZO/PMX 3.375GM 50 ML IV SCH ×4 (02:49→20:02)
[2018-10-31 05:57] LABS: BASOPHILS # (AUTO) 0.05 x10^3/uL (0-0.1); BASOPHILS % (AUTO) 1 % (0-1); EOSINOPHILS % (AUTO) 2 % (1-7); LYMPHOCYTES # (AUTO) 1.91 x10^3/uL (1-3.4); LYMPHOCYTES % (AUTO) 41 % (22-44); MD NO; MEAN CORPUSCULAR HEMOGLOBIN 29.9 pg (27.0-34.8); MEAN CORPUSCULAR HGB CONC 32.4 g/dL (32.4-35.8); MEAN CORPUSCULAR VOLUME 92.2 fL (80-100); MEAN PLATELET VOLUME 7.3 fL (7.4-10.4); MONOCYTES # (AUTO) 0.51 x10^3/uL (0.2-0.8); MONOCYTES % (AUTO) 11 % (2-9); NEUTROPHILS # (AUTO) 2.11 x10^3/uL (1.8-6.8); NEUTROPHILS % (AUTO) 45 % (42-75); PLATELET COUNT 235 x10^3/uL (130-400); RED BLOOD COUNT 3.49 x10^6/uL (3.82-5.3)
[2018-10-31 06:06] LABS: ANION GAP 8 mmol/L (5-15); CALCIUM 8.9 mg/dL (8.5-10.1); CHLORIDE 106 mmol/L (98-107); CREATININE 1.17 mg/dL (0.55-1.02)
[2018-10-31 07:56] VITALS: BP 138/71
[2018-10-31] MEDS: LACTOBACILLUS CHEW TABLET PO SCH ×3 (08:11→20:02)
[2018-10-31] MEDS: GABAPENTIN 300 MG CAPSULE PO SCH ×3 (08:11→20:02)
[2018-10-31] MEDS ORDERED: OMNIPAQUE 350 MG/ML, 150 ML BOTTLE ONE (13:07)
[2018-10-31] MEDS: morphine SULFATE 10 MG/ML, 1ML IVPush PRN ×2 (14:07→22:30)
[2018-10-31 14:10] VITALS: BP 146/80
[2018-10-31 19:49] VITALS: BP 147/80
[2018-10-31] MEDS: VANCOMYCIN 1,100 MG in SODIUM CHLORIDE 0.9% 250 ML IV SCH (22:18)
[2018-11-01 01:31] VITALS: BP 119/74
[2018-11-01] MEDS: PIPERACILLIN/TAZO/PMX 3.375GM 50 ML IV SCH ×4 (02:10→20:22)
[2018-11-01] MEDS: HEPARIN 5,000 UNITS/ML, 1ML SQ SCH ×3 (02:11→17:52)
[2018-11-01 05:57] LABS: BASOPHILS # (AUTO) 0.04 x10^3/uL (0-0.1); BASOPHILS % (AUTO) 1 % (0-1); EOSINOPHILS # (AUTO) 0.12 x10^3/uL (0-0.4); EOSINOPHILS % (AUTO) 2 % (1-7); LYMPHOCYTES # (AUTO) 2.03 x10^3/uL (1-3.4); LYMPHOCYTES % (AUTO) 36 % (22-44); MD NO; MEAN CORPUSCULAR HEMOGLOBIN 30.3 pg (27.0-34.8); MEAN CORPUSCULAR HGB CONC 32.8 g/dL (32.4-35.8); MEAN CORPUSCULAR VOLUME 92.4 fL (80-100); MEAN PLATELET VOLUME 7.2 fL (7.4-10.4); MONOCYTES # (AUTO) 0.59 x10^3/uL (0.2-0.8); MONOCYTES % (AUTO) 11 % (2-9); NEUTROPHILS # (AUTO) 2.85 x10^3/uL (1.8-6.8); NEUTROPHILS % (AUTO) 51 % (42-75); PLATELET COUNT 252 x10^3/uL (130-400); RED BLOOD COUNT 3.54 x10^6/uL (3.82-5.3); RED CELL DISTRIBUTION WIDTH 16.4 % (9.6-15.2)
[2018-11-01 06:06] LABS: CHLORIDE 107 mmol/L (98-107)
[2018-11-01 06:12] LABS: ANION GAP 9 mmol/L (5-15); CALCIUM 8.5 mg/dL (8.5-10.1); CREATININE 1.22 mg/dL (0.55-1.02)
[2018-11-01 07:07] VITALS: BP 144/77
[2018-11-01] MEDS: LACTOBACILLUS CHEW TABLET PO SCH ×3 (09:02→20:22)
[2018-11-01] MEDS: GABAPENTIN 300 MG CAPSULE PO SCH ×3 (09:02→20:22)
[2018-11-01 15:16] VITALS: BP 168/74
[2018-11-01 19:12] VITALS: BP 170/84
[2018-11-01] MEDS: morphine SULFATE 10 MG/ML, 1ML IVPush PRN (20:31)
[2018-11-02 02:07] VITALS: BP 143/78
[2018-11-02] MEDS: PIPERACILLIN/TAZO/PMX 3.375GM 50 ML IV SCH ×3 (02:11→14:00)
[2018-11-02] MEDS: HEPARIN 5,000 UNITS/ML, 1ML SQ SCH ×2 (02:11→10:09)
[2018-11-02 07:08] VITALS: BP 165/72
[2018-11-02] MEDS: LACTOBACILLUS CHEW TABLET PO SCH (08:49)
[2018-11-02] MEDS: GABAPENTIN 300 MG CAPSULE PO SCH (08:49)
[2018-11-02] MEDS: VANCOMYCIN 1,100 MG in SODIUM CHLORIDE 0.9% 250 ML IV SCH (10:09)
[2018-11-02] MEDS ORDERED: CEFD300C37 PO (12:55)
[2018-11-02] MEDS ORDERED: DOXY100C2 PO ×2 (12:55)
[2018-11-02] MEDS ORDERED: GABA300C10 PO (12:55)
[2018-11-02 13:08] VITALS: BP 119/79
[2018-11-02] MEDS ORDERED: ASPI81TA45 PO (14:07)
[2018-11-03] MEDS ORDERED: VANCOMYCIN PMX 1GM/200ML 200 ML IVPB SCH (22:00)
== END 2018-11-02 16:00 | disposition home health service (06) | DRG 603 ==
LOC: ED 17:28 → EDIP 20:23 → 3NE 21:35 → DCLOUNGE 11-02 15:32
PROVIDERS: ADMIT Internal Medicine; ATTEND Internal Medicine
DX: L03.115 Cellulitis of right lower limb (principal); E44.0 Moderate protein-calorie malnutrition; S91.002A Unspecified open wound, left ankle, initial encounter; L03.116 Cellulitis of left lower limb; G62.9 Polyneuropathy, unspecified; I12.9 Hypertensive chronic kidney disease with stage 1 through stage 4 chronic kidney disease, or unspecified chronic kidney disease; I73.9 Peripheral vascular disease, unspecified; I87.2 Venous insufficiency (chronic) (peripheral); K21.9 Gastro-esophageal reflux disease without esophagitis; K22.70 Barrett's esophagus without dysplasia; M06.9 Rheumatoid arthritis, unspecified; N18.3 Chronic kidney disease, stage 3 (moderate); Z85.3 Personal history of malignant neoplasm of breast; Z90.12 Acquired absence of left breast and nipple; Z90.710 Acquired absence of both cervix and uterus; Z96.619 Presence of unspecified artificial shoulder joint; Z96.643 Presence of artificial hip joint, bilateral; Z98.1 Arthrodesis status; Z68.22 Body mass index [BMI] 22.0-22.9, adult
CPT/HCPCS: 36415; 75635; 80048; 80053; 80061; 80202; 83036; 83605; 83735; 83880; 84439; 84443; 85025; 85651; 86140; 87040; 87070; 87077; 87186; 87205; 87324; 93970; 96374; 96376; G0378; J0295; J1644; J2543; J3370; Q9967; J2270; J7050

== ENCOUNTER 2019-05-17 19:28 | Emergency (ER) | payer MEDICARE ==
[~2019-05-17] VITALS: Ht 162.6 cm; Wt 54.0 kg
[~2019-05-17 19:28] MED LIST changes: +CEFD300C37 PO; +DOXY100C2 PO; +GABA300C10 PO
[2019-05-17 19:31] VITALS: BP 175/86
[2019-05-17] MEDS ORDERED: SODIUM CHLORIDE FLUSH 10ML SYR IVF ONE (20:00)
[2019-05-17 20:29] LABS: BASOPHILS # (AUTO) 0.03 x10^3/uL (0-0.1); BASOPHILS % (AUTO) 0 % (0-1); EOSINOPHILS # (AUTO) 0.03 x10^3/uL (0-0.4); EOSINOPHILS % (AUTO) 0 % (1-7); LYMPHOCYTES # (AUTO) 1.67 x10^3/uL (1-3.4); LYMPHOCYTES % (AUTO) 20 % (22-44); MD NO; MEAN CORPUSCULAR HEMOGLOBIN 30.4 pg (27.0-34.8); MEAN CORPUSCULAR HGB CONC 31.9 g/dL (32.4-35.8); MEAN CORPUSCULAR VOLUME 95.2 fL (80-100); MEAN PLATELET VOLUME 7.7 fL (7.4-10.4); MONOCYTES # (AUTO) 0.57 x10^3/uL (0.2-0.8); MONOCYTES % (AUTO) 7 % (2-9); NEUTROPHILS # (AUTO) 6.27 x10^3/uL (1.8-6.8); NEUTROPHILS % (AUTO) 73 % (42-75); PLATELET COUNT 244 x10^3/uL (130-400); RED BLOOD COUNT 3.89 x10^6/uL (3.82-5.3)
[2019-05-17 20:40] LABS: ALANINE AMINOTRANSFERASE 17 U/L (12-78); ALBUMIN 3.4 g/dL (3.4-5.0); ANION GAP 8 mmol/L (5-15); CALCIUM 9.1 mg/dL (8.5-10.1); CHLORIDE 106 mmol/L (98-107); CREATININE 1.22 mg/dL (0.55-1.02)
--- NOTE | 2019-05-17 20:41 | NUR ---
PT ARRIVED TO ROOM 26 WITH TECH VIA WHEELCHAIR. PT HERE FOR POSSIBLE LEG/WOUND INFECTION. PT HAS HOME HEALTH RN FOR CELLULITIS ON LLE, RLE APPEARS INFECTED. PT DENIES FEVERS/CHILLS. PT AAO X 4, VSS, DRESSED IN GOWN AND ATTACHED TO MONITOR. RESTING IN GURNEY WITH CALL LIGHT WITHIN REACH AND SIDERAIL X [address]. PT STATES SHE HAS HX CELLULITIS FOR THE PAST 5 YEARS IN BILATERAL LOWER EXTREMITIES.
[2019-05-17 20:42] LABS: ALKALINE PHOSPHATASE 101 U/L (45-117); BILIRUBIN,TOTAL 0.6 mg/dL (0.2-1.0); TOTAL PROTEIN 7.6 g/dL (6.4-8.2)
--- NOTE | 2019-05-17 20:43 | NUR ---
AT BEDSIDE FOR EXAM.
[2019-05-17] MEDS ORDERED: CEFTRIAXONE PMX 1GM/50ML 50 ML ONE (20:52)
[2019-05-17] MEDS ORDERED: CEFTRIAXONE PMX 1GM/50ML 50 ML IV ONE (21:00)
--- NOTE | 2019-05-17 21:12 | NUR ---
PIV ESTABLISHED, IV ABX ADMINISTERED PER ORDER.
--- NOTE | 2019-05-17 21:45 | NUR ---
ALL RESULTS BACK AT THIS TIME, CHART UP FOR RECHECK BY .
--- NOTE | 2019-05-17 21:46 | NUR ---
PT AMBULATORY WITH CANE TO RESTROOM X 2, GAIT STEADY.
--- NOTE | 2019-05-17 22:10 | NUR ---
MD TO BEDSIDE, PT TO D/C HOME.
--- NOTE | 2019-05-17 22:56 | NUR ---
Patient/Caregiver given discharge instructions and they have confirmed that they understand the instructions. Patient ambulatory with CANE BUT ESCORTED OUT VIA WHEELCHAIR.
== END 2019-05-17 22:57 | disposition home or self-care (01) ==
LOC: ED 21:15
DX: L03.115 Cellulitis of right lower limb (principal); I10 Essential (primary) hypertension; Z85.3 Personal history of malignant neoplasm of breast
CPT/HCPCS: 36415; 73590; 80053; 83605; 84145; 85025; 87040; 96365; 99284; J0696

== ENCOUNTER → 2019-10-27 | Outpatient (CLI) | payer MEDICARE | END | disposition home or self-care (01) | LOC: PETCFH 12:26 | PROVIDERS: ATTEND Internal Medicine | DX: C79.89 Secondary malignant neoplasm of other specified sites (principal); R59.0 Localized enlarged lymph nodes | CPT/HCPCS: 78815; A9552 ==

== ENCOUNTER → 2019-11-09 | Outpatient (CLI) | payer MEDICARE | END | disposition home or self-care (01) | LOC: CFH 14:00 | PROVIDERS: ATTEND Nurse Practitioner | DX: C50.412 Malignant neoplasm of upper-outer quadrant of left female breast (principal); C79.89 Secondary malignant neoplasm of other specified sites; M41.86 Other forms of scoliosis, lumbar region; K56.41 Fecal impaction; Z96.643 Presence of artificial hip joint, bilateral; Z79.899 Other long term (current) drug therapy | CPT/HCPCS: 74018 ==

== ENCOUNTER 2019-12-02 09:18 | Outpatient (CLI) | payer MEDICARE | END 2019-12-02 23:59 | disposition home or self-care (01) | LOC: ROC 09:18 | PROVIDERS: ATTEND Radiology Radiation Oncology | DX: Z02.9 Encounter for administrative examinations, unspecified (principal) ==

== ENCOUNTER → 2020-02-24 | Outpatient (CLI) | payer MEDICARE | END | disposition home or self-care (01) | LOC: RAD 17:43 | PROVIDERS: ATTEND Physician Assistant Surgical | DX: R22.41 Localized swelling, mass and lump, right lower limb (principal); M79.661 Pain in right lower leg ==

== ENCOUNTER 2020-03-08 15:15 | Inpatient (IN) | payer MEDICARE ==
[~2020-03-08] VITALS: Ht 152.4 cm; Wt 57.9 kg
--- NOTE | 2020-03-08 15:40 | NUR ---
THIS IS AN 84 YO FEMALE COMING IN FOR NOHEALING WORSENING WOUNDS AND INCREASED SWELLING IN LEFT LEG. PATIENT HAS HOME HEALTH NURSE AND HAS WOUND CARE DONE 3X PER WEEK, AND WAS TOLD SHE NEEDED TO COME TO ER FOR TREATMENT. MULTIPLE NONHEALING WOUNDS NOTED, BANDAGES REMOVED. PATIENT STATES "THE SWELLING IN THE LEFT LEG HAS BEEN GETTING WORSE THIS WEEK, AND THAT IS WHY THEY TOLD ME TO COME TO THE ER. [facility]SM INTACT. SPO2 AND BP MONITORING IN PLACE. VSS, A&OX4, NADN. CALL LIGHT IN REACH
--- NOTE | 2020-03-08 15:55 | NUR ---
ERP TO ROOM
[2020-03-08] MEDS ORDERED: SODIUM CHLORIDE FLUSH 10ML SYR IVF ONE (16:00)
[2020-03-08] MEDS ORDERED: HYDROcodone/APAP 5/325 TABLET PO ONE (16:00)
--- NOTE | 2020-03-08 16:11 | NUR ---
ATTEMPTED US. PT NOT AVAILABLE AT THIS TIME aa
--- NOTE | 2020-03-08 16:20 | NUR ---
PIV PLACED, LABS DRAWN
[2020-03-08] MEDS ORDERED: HYDROcodone/APAP 5/325 TABLET ONE (16:28)
--- NOTE | 2020-03-08 16:29 | NUR ---
PATIENT INFORMED THIS RN, RECENTLY TOOK COURSE OF CIPRO, ENDED FRIDAY WITH NO IMPROVEMENT OF WOUNDS. WILL NOTIFY
[2020-03-08 16:41] LABS: BASOPHILS # (AUTO) 0.03 x10^3/uL (0-0.1); BASOPHILS % (AUTO) 0 % (0-1); EOSINOPHILS # (AUTO) 0.06 x10^3/uL (0-0.4); EOSINOPHILS % (AUTO) 1 % (1-7); LYMPHOCYTES # (AUTO) 1.69 x10^3/uL (1-3.4); LYMPHOCYTES % (AUTO) 21 % (22-44); MD NO; MEAN CORPUSCULAR HEMOGLOBIN 28.9 pg (27.0-34.8); MEAN CORPUSCULAR HGB CONC 31.9 g/dL (32.4-35.8); MEAN CORPUSCULAR VOLUME 90.7 fL (80-100); MEAN PLATELET VOLUME 6.9 fL (7.4-10.4); MONOCYTES # (AUTO) 0.43 x10^3/uL (0.2-0.8); MONOCYTES % (AUTO) 6 % (2-9); NEUTROPHILS # (AUTO) 5.75 x10^3/uL (1.8-6.8); NEUTROPHILS % (AUTO) 72 % (42-75); PLATELET COUNT 318 x10^3/uL (130-400); RED BLOOD COUNT 3.88 x10^6/uL (3.82-5.3); RED CELL DISTRIBUTION WIDTH 17.1 % (9.6-15.2)
[2020-03-08 16:53] LABS: ALANINE AMINOTRANSFERASE 16 U/L (12-78); ALBUMIN 3.1 g/dL (3.4-5.0); ANION GAP 4 mmol/L (5-15); CALCIUM 9.2 mg/dL (8.5-10.1); CHLORIDE 108 mmol/L (98-107)
[2020-03-08 16:55] LABS: ALKALINE PHOSPHATASE 115 U/L (45-117); BILIRUBIN,TOTAL 0.4 mg/dL (0.2-1.0)
--- NOTE | 2020-03-08 17:06 | NUR ---
PATIENT STAND AND PIVOT TO COMMODE, TOLERATED WELL. BACK ON GURNEY AT THIS TIME. AWATING US TECH TO COMPLETE US
--- NOTE | 2020-03-08 17:10 | NUR ---
US IN ROOM
--- NOTE | 2020-03-08 17:55 | NUR ---
ERP TO ROOM FOR RECHECK
[2020-03-08] MEDS ORDERED: CLINDAMYCIN PMX 600MG/50ML 50 ML ONE (18:05)
--- NOTE | 2020-03-08 18:20 | NUR ---
NO CULTURES TO BE DRAWN PRIOR TO ABX ADMIN PER MD ORDERS
--- NOTE | 2020-03-08 18:30 | NUR ---
IV ABX STARTED
[2020-03-08] MEDS ORDERED: CLINDAMYCIN PMX 600MG/50ML 50 ML IV ONE (19:00)
--- NOTE | 2020-03-08 19:35 | NUR ---
MD ANDERS IN ROOM
--- NOTE | 2020-03-08 19:42 | NUR ---
ATTEMPTED TO CALL REPORT X1. RN TO TAKE PATIENT IN OTHER ROOM AT THIS TIME, WILL CALL BACK
--- NOTE | 2020-03-08 20:01 | NUR ---
REPORT GIVEN TO EDWINA CHI. PLAN OF CARE DISCUSSED
[2020-03-08 20:27] VITALS: BP 191/81
[2020-03-08] MEDS ORDERED: PHARMACY MAY ADJ FOR RENAL FX MC PRN (20:30)
[2020-03-08] MEDS ORDERED: ONDANSETRON 2MG/ML, 2ML IVPush PRN (20:30)
[2020-03-08 20:52] LABS: HCT (SEDRATE) 37.1 % (34.6-47.8)
[2020-03-08] MEDS: HEPARIN 5,000 UNITS/ML, 1ML SQ SCH (21:11)
[2020-03-08] MEDS: GABAPENTIN 300 MG CAPSULE PO SCH (21:11)
[2020-03-08] MEDS: hydrALAzine 20 MG/ML, 1ML IVPush PRN (21:12)
[2020-03-09 00:42] VITALS: BP 166/76
[2020-03-09] MEDS: ACETAMINOPHEN 325 MG TABLET PO PRN ×3 (02:10→22:02)
[2020-03-09 02:16] LABS: MICROSCOPIC NOT IND
[2020-03-09] MEDS: CLINDAMYCIN PMX 600MG/50ML 50 ML IV SCH ×3 (02:18→17:57)
[2020-03-09] MEDS: HEPARIN 5,000 UNITS/ML, 1ML SQ SCH ×3 (05:00→23:41)
[2020-03-09 06:18] LABS: BASOPHILS # (AUTO) 0.05 x10^3/uL (0-0.1); BASOPHILS % (AUTO) 1 % (0-1); EOSINOPHILS # (AUTO) 0.09 x10^3/uL (0-0.4); EOSINOPHILS % (AUTO) 1 % (1-7); LYMPHOCYTES # (AUTO) 1.86 x10^3/uL (1-3.4); LYMPHOCYTES % (AUTO) 29 % (22-44); MD NO; MEAN CORPUSCULAR HGB CONC 32.2 g/dL (32.4-35.8); MEAN CORPUSCULAR VOLUME 89.9 fL (80-100); MEAN PLATELET VOLUME 6.8 fL (7.4-10.4); MONOCYTES # (AUTO) 0.45 x10^3/uL (0.2-0.8); MONOCYTES % (AUTO) 7 % (2-9); NEUTROPHILS # (AUTO) 3.98 x10^3/uL (1.8-6.8); NEUTROPHILS % (AUTO) 62 % (42-75); PLATELET COUNT 268 x10^3/uL (130-400); RED BLOOD COUNT 3.34 x10^6/uL (3.82-5.3); RED CELL DISTRIBUTION WIDTH 17.1 % (9.6-15.2)
[2020-03-09 06:24] LABS: ANION GAP 9 mmol/L (5-15); CALCIUM 8.3 mg/dL (8.5-10.1); CHLORIDE 109 mmol/L (98-107)
[2020-03-09 06:28] LABS: CHOL/HDL RATIO 2.8; CHOLESTEROL, TOTAL 130 mg/dL (140-239); CREATININE 0.99 mg/dL (0.55-1.02); HDL CHOL % 35 % (28-40); HDL CHOLESTEROL (DIRECT) 46 mg/dL (40-60); LDL CHOLESTEROL,CALCULATED 62 mg/dL (54-169); LDL/HDL RATIO 1.3 (0.5-3.0); TRIGLYCERIDES 112 mg/dL (50-200); VLDL CHOLESTEROL 22 mg/dL (0-25)
[2020-03-09 07:27] VITALS: BP 120/67
[2020-03-09] MEDS: SENNA/DOCUSATE TABLET PO SCH ×2 (09:33→09:37)
[2020-03-09] MEDS: GABAPENTIN 300 MG CAPSULE PO SCH ×3 (09:33→22:02)
[2020-03-09] MEDS: PANTOPRAZOLE 40MG TABLET PO SCH (09:33)
[2020-03-09 16:55] VITALS: BP 157/95
[2020-03-09 19:50] VITALS: BP 138/73
[2020-03-10 01:41] VITALS: BP 125/67
[2020-03-10] MEDS: CLINDAMYCIN PMX 600MG/50ML 50 ML IV SCH ×2 (02:34→10:59)
[2020-03-10 06:29] VITALS: BP 145/79
[2020-03-10] MEDS: PANTOPRAZOLE 40MG TABLET PO SCH (08:35)
[2020-03-10] MEDS: HEPARIN 5,000 UNITS/ML, 1ML SQ SCH ×2 (08:35→16:31)
[2020-03-10] MEDS: GABAPENTIN 300 MG CAPSULE PO SCH ×3 (08:36→20:19)
[2020-03-10 14:00] VITALS: BP 131/83
[2020-03-10] MEDS ORDERED: OXYcodone IR 5MG TABLET PO PRN (16:00)
[2020-03-10] MEDS: CLINDAMYCIN 300 MG CAPSULE PO SCH ×2 (16:30→20:19)
[2020-03-10] MEDS: CEFTRIAXONE PMX 1GM/50ML 50 ML IV SCH (16:30)
[2020-03-10] MEDS: ACETAMINOPHEN 325 MG TABLET PO PRN (20:19)
[2020-03-10 21:03] VITALS: BP 138/76
[2020-03-11] MEDS: HEPARIN 5,000 UNITS/ML, 1ML SQ SCH ×3 (00:10→17:44)
[2020-03-11 01:16] VITALS: BP 153/88
[2020-03-11 08:00] VITALS: BP 155/73
[2020-03-11] MEDS: CLINDAMYCIN 300 MG CAPSULE PO SCH ×3 (08:15→21:29)
[2020-03-11] MEDS: PANTOPRAZOLE 40MG TABLET PO SCH (08:15)
[2020-03-11] MEDS: GABAPENTIN 300 MG CAPSULE PO SCH ×4 (08:15→21:37)
[2020-03-11] MEDS: SENNA/DOCUSATE TABLET PO SCH (08:16)
[2020-03-11 13:51] VITALS: BP 140/82
[2020-03-11] MEDS: ACETAMINOPHEN 325 MG TABLET PO PRN ×2 (14:17→21:29)
[2020-03-11] MEDS: CEFTRIAXONE PMX 1GM/50ML 50 ML IV SCH (14:17)
[2020-03-11 19:44] VITALS: BP 166/80
[2020-03-12 00:39] VITALS: BP 158/84
[2020-03-12] MEDS: HEPARIN 5,000 UNITS/ML, 1ML SQ SCH ×3 (02:17→18:31)
[2020-03-12] MEDS: PANTOPRAZOLE 40MG TABLET PO SCH (07:34)
[2020-03-12 07:38] VITALS: BP 180/85
[2020-03-12] MEDS: hydrALAzine 20 MG/ML, 1ML IVPush PRN (07:40)
[2020-03-12 08:31] VITALS: BP 147/83
[2020-03-12] MEDS: SENNA/DOCUSATE TABLET PO SCH ×2 (09:00→09:57)
[2020-03-12] MEDS: CLINDAMYCIN 300 MG CAPSULE PO SCH ×3 (09:57→20:26)
[2020-03-12] MEDS: GABAPENTIN 300 MG CAPSULE PO SCH ×3 (09:57→20:25)
[2020-03-12] MEDS: ACETAMINOPHEN 325 MG TABLET PO PRN ×2 (09:57→20:33)
[2020-03-12 13:27] VITALS: BP 127/66
[2020-03-12] MEDS: CEFTRIAXONE PMX 1GM/50ML 50 ML IV SCH (14:42)
[2020-03-12 19:17] VITALS: BP 171/78
[2020-03-12 21:30] VITALS: BP 142/78
[2020-03-13 03:00] VITALS: BP 148/73
[2020-03-13] MEDS: HEPARIN 5,000 UNITS/ML, 1ML SQ SCH ×3 (03:07→18:54)
[2020-03-13 05:28] LABS: BASOPHILS # (AUTO) 0.04 x10^3/uL (0-0.1); BASOPHILS % (AUTO) 1 % (0-1); EOSINOPHILS # (AUTO) 0.08 x10^3/uL (0-0.4); EOSINOPHILS % (AUTO) 1 % (1-7); LYMPHOCYTES % (AUTO) 31 % (22-44); MD NO; MEAN CORPUSCULAR HEMOGLOBIN 29.4 pg (27.0-34.8); MEAN CORPUSCULAR HGB CONC 32.3 g/dL (32.4-35.8); MEAN PLATELET VOLUME 6.9 fL (7.4-10.4); MONOCYTES # (AUTO) 0.53 x10^3/uL (0.2-0.8); MONOCYTES % (AUTO) 7 % (2-9); NEUTROPHILS # (AUTO) 4.55 x10^3/uL (1.8-6.8); NEUTROPHILS % (AUTO) 61 % (42-75); PLATELET COUNT 314 x10^3/uL (130-400); RED BLOOD COUNT 4.01 x10^6/uL (3.82-5.3); RED CELL DISTRIBUTION WIDTH 16.9 % (9.6-15.2)
[2020-03-13 05:34] LABS: ALANINE AMINOTRANSFERASE 14 U/L (12-78); ALBUMIN 2.7 g/dL (3.4-5.0); ANION GAP 9 mmol/L (5-15); CALCIUM 8.6 mg/dL (8.5-10.1); CHLORIDE 105 mmol/L (98-107); CREATININE 1.08 mg/dL (0.55-1.02)
[2020-03-13 05:43] LABS: ALKALINE PHOSPHATASE 93 U/L (45-117); BILIRUBIN,TOTAL 0.3 mg/dL (0.2-1.0); TOTAL PROTEIN 7.1 g/dL (6.4-8.2)
[2020-03-13 06:21] VITALS: BP 165/88
[2020-03-13 06:31] LABS: HCT (SEDRATE) 36.5 % (34.6-47.8)
[2020-03-13] MEDS: PANTOPRAZOLE 40MG TABLET PO SCH (07:24)
[2020-03-13] MEDS: ACETAMINOPHEN 325 MG TABLET PO PRN ×2 (07:24→21:47)
[2020-03-13] MEDS: GABAPENTIN 300 MG CAPSULE PO SCH ×3 (07:24→20:28)
[2020-03-13] MEDS: SENNA/DOCUSATE TABLET PO SCH (07:25)
[2020-03-13] MEDS: CLINDAMYCIN 300 MG CAPSULE PO SCH ×3 (08:56→20:28)
[2020-03-13 13:10] VITALS: BP 129/78
[2020-03-13] MEDS: CEFTRIAXONE PMX 1GM/50ML 50 ML IV SCH (15:18)
[2020-03-13 20:06] VITALS: BP 142/77
[2020-03-14 01:15] VITALS: BP 151/77
[2020-03-14] MEDS: HEPARIN 5,000 UNITS/ML, 1ML SQ SCH ×3 (02:09→18:00)
[2020-03-14 07:39] VITALS: BP 170/110
[2020-03-14] MEDS: GABAPENTIN 300 MG CAPSULE PO SCH ×3 (07:59→21:48)
[2020-03-14] MEDS: PANTOPRAZOLE 40MG TABLET PO SCH (07:59)
[2020-03-14] MEDS: ACETAMINOPHEN 325 MG TABLET PO PRN ×2 (08:14→21:58)
[2020-03-14] MEDS: CLINDAMYCIN 300 MG CAPSULE PO SCH ×3 (08:14→21:48)
[2020-03-14] MEDS: SENNA/DOCUSATE TABLET PO SCH (08:18)
[2020-03-14 09:55] VITALS: BP 159/82
[2020-03-14 13:07] VITALS: BP 147/80
[2020-03-14 15:11] LABS: ANA SCREEN NEGATIVE (Negative)
[2020-03-14] MEDS: CEFTRIAXONE PMX 1GM/50ML 50 ML IV SCH (15:24)
[2020-03-14 19:42] VITALS: BP 158/72
[2020-03-14] MEDS ORDERED: HYDR-3342 PO (22:33)
[2020-03-14] MEDS ORDERED: GABA300C PO (22:33)
[2020-03-14] MEDS ORDERED: SENN-193 PO (22:33)
[2020-03-15 01:09] VITALS: BP 132/72
[2020-03-15] MEDS: ACETAMINOPHEN 325 MG TABLET PO PRN ×4 (01:58→21:30)
[2020-03-15] MEDS: HEPARIN 5,000 UNITS/ML, 1ML SQ SCH ×3 (01:59→18:09)
[2020-03-15 07:28] VITALS: BP 146/73
[2020-03-15] MEDS: SENNA/DOCUSATE TABLET PO SCH (08:41)
[2020-03-15] MEDS: CLINDAMYCIN 300 MG CAPSULE PO SCH ×3 (08:41→20:35)
[2020-03-15] MEDS: PANTOPRAZOLE 40MG TABLET PO SCH (08:41)
[2020-03-15] MEDS: GABAPENTIN 300 MG CAPSULE PO SCH ×3 (08:41→20:35)
[2020-03-15 14:58] VITALS: BP 155/78
[2020-03-15] MEDS: CEFTRIAXONE PMX 1GM/50ML 50 ML IV SCH (15:26)
[2020-03-15 20:33] VITALS: BP 136/78
[2020-03-16 02:26] VITALS: BP 110/52
[2020-03-16] MEDS: HEPARIN 5,000 UNITS/ML, 1ML SQ SCH ×2 (02:31→09:27)
[2020-03-16] MEDS: ACETAMINOPHEN 325 MG TABLET PO PRN (02:33)
[2020-03-16 07:51] VITALS: BP 165/75
[2020-03-16] MEDS: PANTOPRAZOLE 40MG TABLET PO SCH (08:20)
[2020-03-16] MEDS: CLINDAMYCIN 300 MG CAPSULE PO SCH (08:20)
[2020-03-16] MEDS: SENNA/DOCUSATE TABLET PO SCH (08:20)
[2020-03-16] MEDS: GABAPENTIN 300 MG CAPSULE PO SCH (08:21)
[2020-03-16] MEDS ORDERED: DOXY100T PO (13:17)
[2020-03-16 13:37] VITALS: BP 161/85
[2020-03-16] MEDS: CEFTRIAXONE PMX 1GM/50ML 50 ML IV SCH (15:00)
== END 2020-03-16 15:17 | disposition home or self-care (01) | DRG 603 ==
LOC: ED 17:04 → EDIP 18:11 → 3N 20:15 → DCLOUNGE 03-16 15:11
PROVIDERS: ADMIT Family Medicine; ATTEND Internal Medicine
DX: L03.116 Cellulitis of left lower limb (principal); E44.1 Mild protein-calorie malnutrition; L97.209 Non-pressure chronic ulcer of unspecified calf with unspecified severity; C50.912 Malignant neoplasm of unspecified site of left female breast; L03.115 Cellulitis of right lower limb; I73.9 Peripheral vascular disease, unspecified; I87.2 Venous insufficiency (chronic) (peripheral); G62.9 Polyneuropathy, unspecified; N18.3 Chronic kidney disease, stage 3 (moderate); K22.70 Barrett's esophagus without dysplasia; I35.1 Nonrheumatic aortic (valve) insufficiency; I12.9 Hypertensive chronic kidney disease with stage 1 through stage 4 chronic kidney disease, or unspecified chronic kidney disease; M06.9 Rheumatoid arthritis, unspecified; D64.9 Anemia, unspecified; E78.5 Hyperlipidemia, unspecified; G89.29 Other chronic pain; K21.9 Gastro-esophageal reflux disease without esophagitis; Z96.611 Presence of right artificial shoulder joint; Z96.612 Presence of left artificial shoulder joint; Z96.643 Presence of artificial hip joint, bilateral; M17.10 Unilateral primary osteoarthritis, unspecified knee; Z66 Do not resuscitate; Z79.899 Other long term (current) drug therapy; Z85.3 Personal history of malignant neoplasm of breast; Z90.12 Acquired absence of left breast and nipple; Z90.710 Acquired absence of both cervix and uterus; Z98.1 Arthrodesis status; Z88.2 Allergy status to sulfonamides; Z88.8 Allergy status to other drugs, medicaments and biological substances; Z88.6 Allergy status to analgesic agent; Z68.24 Body mass index [BMI] 24.0-24.9, adult
CPT/HCPCS: 36415; 71045; 80048; 80053; 80061; 81003; 83036; 83520; 85025; 85651; 86038; 86140; 86200; 86235; 86256; 86430; 87070; 87077; 87205; 93925; 93970; 96374; G0378; J0696; J1644; J0360

== ENCOUNTER 2020-03-30 01:16 | Inpatient (IN) | payer MEDICARE ==
[~2020-03-30] VITALS: Ht 152.4 cm; Wt 54.9 kg
[~2020-03-30 01:16] MED LIST changes: +DOXY100T PO; +GABA300C PO; +HYDR-3342 PO; +SENN-193 PO
[2020-03-30] MEDS ORDERED: ONDANSETRON 2MG/ML, 2ML IVPush ONE (01:30)
[2020-03-30] MEDS ORDERED: VANCOMYCIN PER PHARMACY MC ONE (01:30)
[2020-03-30] MEDS ORDERED: CEFTRIAXONE PMX 1GM/50ML 50 ML IVPB ONE (01:30)
[2020-03-30] MEDS ORDERED: VANCOMYCIN 1,400 MG in SODIUM CHLORIDE 0.9% 250 ML IV ONE (01:30)
[2020-03-30] MEDS ORDERED: MORPHINE SULFATE 4 MG/ML, 1ML ONE ×2 (01:42→02:09)
[2020-03-30] MEDS ORDERED: ONDANSETRON 2MG/ML, 2ML ONE (01:42)
[2020-03-30] MEDS: MORPHINE SULFATE 4 MG/ML, 1ML IVPush PRN ×2 (01:47→02:43)
--- NOTE | 2020-03-30 01:50 | NUR ---
THIS PT WAS BIB [facility], COMING FROM HOME WHERE SHE LIVES WITH HER S/O. SHE PRESENTS WITH BILATERAL LE WHEEPING CELLULITIS WITH 4+ EDEMA, CRYING FROM PAIN. PT NORMALLY WALKS WITH A CANE AT BASELINE, IS UNABLE TO WALK DUE TO SWELLING AND PAIN. PT IS CURRENTLY ON CARDIAC, BP AND O2 MONITOR. VSS. STEVENS RN AT BEDSIDE TO START US GUIDED IV. PT MEDICATED TO MAR AND EDUCATED ABOUT THE NEED FOR 2 IV'S SO ABX CAN RUN WHILE PAIN MEDS AND OTHER DRUGS ARE ADMINISTERED.
[2020-03-30] MEDS ORDERED: CEFTRIAXONE PMX 1GM/50ML 50 ML ONE (01:56)
--- NOTE | 2020-03-30 02:05 | NUR ---
ABX ADMINISTERED AFTER 1 SET OF CULTURES DRAWN. PT REFUSED LAB FOR SECOND CULTURE DRAW, AWARE.
[2020-03-30 02:14] LABS: BASOPHILS # (AUTO) 0.03 x10^3/uL (0-0.1); BASOPHILS % (AUTO) 0 % (0-1); EOSINOPHILS # (AUTO) 0.08 x10^3/uL (0-0.4); EOSINOPHILS % (AUTO) 1 % (1-7); LYMPHOCYTES # (AUTO) 1.69 x10^3/uL (1-3.4); LYMPHOCYTES % (AUTO) 21 % (22-44); MD NO; MEAN CORPUSCULAR HEMOGLOBIN 29.2 pg (27.0-34.8); MEAN CORPUSCULAR HGB CONC 32.3 g/dL (32.4-35.8); MEAN CORPUSCULAR VOLUME 90.2 fL (80-100); MEAN PLATELET VOLUME 7.4 fL (7.4-10.4); MONOCYTES % (AUTO) 6 % (2-9); NEUTROPHILS # (AUTO) 5.69 x10^3/uL (1.8-6.8); NEUTROPHILS % (AUTO) 71 % (42-75); PLATELET COUNT 231 x10^3/uL (130-400); RED BLOOD COUNT 3.51 x10^6/uL (3.82-5.3); RED CELL DISTRIBUTION WIDTH 17.9 % (9.6-15.2)
[2020-03-30 02:27] LABS: ALBUMIN 2.7 g/dL (3.4-5.0); ANION GAP 5 mmol/L (5-15); CALCIUM 8.7 mg/dL (8.5-10.1); CHLORIDE 108 mmol/L (98-107); CREATININE 1.09 mg/dL (0.55-1.02)
--- NOTE | 2020-03-30 02:55 | NUR ---
THIS RN HAS BEEN AT BEDSIDE SINCE LAST NOTE. PT REMAINS AWAKE AND IN PAIN, NO LONGER MOANING OR CRYING. ERP RETURNED TO BEDSIDE TO ASSESS WOUNDS ON LEFT LEG AFTER PT WAS MEDICATED WITH PAIN MEDS. PT TOLERATED WELL. PT UPDATED ON POC. CURRENTLY LIGHTS OFF AND HEATER HOSE IN PLACE TO PROMOTE REST. PT WITH EYES CLOSED, RESPIRATIONS EVEN AND UNLABORED.
[2020-03-30] MEDS ORDERED: ESOM20CA PO (03:04)
[2020-03-30] MEDS ORDERED: MINE15DR2 EACHEYE (03:04)
--- NOTE | 2020-03-30 03:41 | NUR ---
PT LAYING IN BED, EYES CLOSED, STATES PAIN HAS BEEN "DULLED." ALL NEEDS MET AT THIS TIME.
--- NOTE | 2020-03-30 03:51 | NUR ---
REPORT GIVEN TO EDWINA POWELL.
[2020-03-30] MEDS ORDERED: ONDANSETRON 2MG/ML, 2ML IVPush PRN (04:00)
[2020-03-30] MEDS ORDERED: ACETAMINOPHEN 325 MG TABLET PO PRN (04:00)
[2020-03-30] MEDS ORDERED: hydrALAzine 20 MG/ML, 1ML IVPush PRN (04:00)
[2020-03-30 04:41] VITALS: BP 176/78
[2020-03-30] MEDS: ENOXAPARIN 30 MG/0.3 ML SQ SCH (05:29)
[2020-03-30 07:35] VITALS: BP 151/88
[2020-03-30] MEDS: GABAPENTIN 300 MG CAPSULE PO SCH ×3 (08:24→20:58)
[2020-03-30] MEDS: PANTOPRAZOLE 20MG TABLET PO SCH (08:24)
[2020-03-30 14:13] VITALS: BP 136/81
[2020-03-30] MEDS: ACETAMINOPHEN 325 MG TABLET PO SCH ×2 (16:48→20:58)
[2020-03-30] MEDS: FUROSEMIDE 20 MG/2 ML IV SCH (16:48)
[2020-03-30 20:06] VITALS: BP 143/76
[2020-03-31 01:04] VITALS: BP 142/71
[2020-03-31] MEDS: ENOXAPARIN 30 MG/0.3 ML SQ SCH (05:11)
[2020-03-31 05:20] LABS: BASOPHILS # (AUTO) 0.03 x10^3/uL (0-0.1); BASOPHILS % (AUTO) 0 % (0-1); EOSINOPHILS # (AUTO) 0.14 x10^3/uL (0-0.4); EOSINOPHILS % (AUTO) 2 % (1-7); LYMPHOCYTES # (AUTO) 1.38 x10^3/uL (1-3.4); LYMPHOCYTES % (AUTO) 19 % (22-44); MD NO; MEAN CORPUSCULAR HEMOGLOBIN 29.1 pg (27.0-34.8); MEAN CORPUSCULAR HGB CONC 32.4 g/dL (32.4-35.8); MEAN PLATELET VOLUME 7.4 fL (7.4-10.4); MONOCYTES # (AUTO) 0.41 x10^3/uL (0.2-0.8); MONOCYTES % (AUTO) 6 % (2-9); NEUTROPHILS # (AUTO) 5.28 x10^3/uL (1.8-6.8); NEUTROPHILS % (AUTO) 73 % (42-75); PLATELET COUNT 220 x10^3/uL (130-400); RED CELL DISTRIBUTION WIDTH 17.5 % (9.6-15.2)
[2020-03-31 05:23] LABS: ANION GAP 8 mmol/L (5-15); CALCIUM 8.8 mg/dL (8.5-10.1); CHLORIDE 108 mmol/L (98-107); CREATININE 1.01 mg/dL (0.55-1.02)
[2020-03-31 07:02] VITALS: BP 150/82
[2020-03-31] MEDS: PANTOPRAZOLE 20MG TABLET PO SCH (08:54)
[2020-03-31] MEDS: GABAPENTIN 300 MG CAPSULE PO SCH ×3 (08:54→21:53)
[2020-03-31] MEDS: ACETAMINOPHEN 325 MG TABLET PO SCH ×3 (08:54→21:53)
[2020-03-31] MEDS: FUROSEMIDE 20 MG/2 ML IV SCH ×2 (08:54→17:13)
[2020-03-31 13:02] VITALS: BP 127/71
[2020-03-31 19:18] VITALS: BP 147/80
[2020-04-01 00:33] VITALS: BP 150/69
[2020-04-01] MEDS: ENOXAPARIN 30 MG/0.3 ML SQ SCH (05:46)
[2020-04-01 07:43] VITALS: BP 153/77
[2020-04-01] MEDS: GABAPENTIN 300 MG CAPSULE PO SCH ×3 (08:59→20:57)
[2020-04-01] MEDS: ACETAMINOPHEN 325 MG TABLET PO SCH ×3 (08:59→20:57)
[2020-04-01] MEDS: FUROSEMIDE 20 MG/2 ML IV SCH ×2 (08:59→16:21)
[2020-04-01] MEDS: PANTOPRAZOLE 20MG TABLET PO SCH (09:00)
[2020-04-01] MEDS ORDERED: FURO-93 PO (12:52)
[2020-04-01] MEDS ORDERED: AMOX1TAB64 PO (12:53)
[2020-04-01 13:05] VITALS: BP 135/75
[2020-04-01 16:58] LABS: BASOPHILS # (AUTO) 0.04 x10^3/uL (0-0.1); BASOPHILS % (AUTO) 1 % (0-1); EOSINOPHILS # (AUTO) 0.11 x10^3/uL (0-0.4); EOSINOPHILS % (AUTO) 2 % (1-7); LYMPHOCYTES # (AUTO) 2.79 x10^3/uL (1-3.4); LYMPHOCYTES % (AUTO) 38 % (22-44); MD NO; MEAN CORPUSCULAR HEMOGLOBIN 29.3 pg (27.0-34.8); MEAN CORPUSCULAR HGB CONC 32.4 g/dL (32.4-35.8); MEAN CORPUSCULAR VOLUME 90.2 fL (80-100); MEAN PLATELET VOLUME 7.2 fL (7.4-10.4); MONOCYTES # (AUTO) 0.52 x10^3/uL (0.2-0.8); MONOCYTES % (AUTO) 7 % (2-9); NEUTROPHILS # (AUTO) 3.88 x10^3/uL (1.8-6.8); NEUTROPHILS % (AUTO) 53 % (42-75); PLATELET COUNT 250 x10^3/uL (130-400); RED BLOOD COUNT 3.65 x10^6/uL (3.82-5.3); RED CELL DISTRIBUTION WIDTH 18.1 % (9.6-15.2)
[2020-04-01 17:05] LABS: ANION GAP 7 mmol/L (5-15); CALCIUM 8.3 mg/dL (8.5-10.1); CHLORIDE 102 mmol/L (98-107); CREATININE 1.39 mg/dL (0.55-1.02); INTERNATIONAL NORMALIZED RATIO 0.94 (0.93-1.1)
[2020-04-01] MEDS ORDERED: GADOTERATE 7.5 MMOL/15 ML SYR ONE (19:41)
[2020-04-01 20:51] VITALS: BP 119/68
[2020-04-02 00:24] VITALS: BP 143/83
[2020-04-02 05:27] VITALS: BP 149/78
[2020-04-02] MEDS: ENOXAPARIN 30 MG/0.3 ML SQ SCH (05:28)
[2020-04-02 07:23] VITALS: BP 103/68
[2020-04-02] MEDS: FUROSEMIDE 20 MG/2 ML IV SCH ×2 (10:16→16:32)
[2020-04-02] MEDS: GABAPENTIN 300 MG CAPSULE PO SCH ×2 (10:16→16:35)
[2020-04-02] MEDS: ACETAMINOPHEN 325 MG TABLET PO SCH ×2 (10:16→16:35)
[2020-04-02] MEDS: PANTOPRAZOLE 20MG TABLET PO SCH (10:25)
[2020-04-02 14:05] VITALS: BP 135/79
== END 2020-04-02 17:20 | disposition home health service (06) | DRG 299 ==
LOC: ED 02:58 → EDIP 03:23 → 3N 05:02
PROVIDERS: ADMIT Internal Medicine; ATTEND Hospitalist
DX: I73.9 Peripheral vascular disease, unspecified (principal); E43 Unspecified severe protein-calorie malnutrition; L97.909 Non-pressure chronic ulcer of unspecified part of unspecified lower leg with unspecified severity; Z16.11 Resistance to penicillins; I13.0 Hypertensive heart and chronic kidney disease with heart failure and stage 1 through stage 4 chronic kidney disease, or unspecified chronic kidney disease; I87.8 Other specified disorders of veins; N18.3 Chronic kidney disease, stage 3 (moderate); G62.9 Polyneuropathy, unspecified; C50.912 Malignant neoplasm of unspecified site of left female breast; D64.9 Anemia, unspecified; G89.29 Other chronic pain; H91.90 Unspecified hearing loss, unspecified ear; I16.0 Hypertensive urgency; K21.9 Gastro-esophageal reflux disease without esophagitis; K22.70 Barrett's esophagus without dysplasia; M06.9 Rheumatoid arthritis, unspecified; G57.90 Unspecified mononeuropathy of unspecified lower limb; I87.2 Venous insufficiency (chronic) (peripheral); N28.9 Disorder of kidney and ureter, unspecified; Z79.899 Other long term (current) drug therapy; Z85.3 Personal history of malignant neoplasm of breast; Z90.12 Acquired absence of left breast and nipple; Z90.710 Acquired absence of both cervix and uterus; Z91.19 Patient's noncompliance with other medical treatment and regimen; Z96.611 Presence of right artificial shoulder joint; Z96.612 Presence of left artificial shoulder joint; Z96.643 Presence of artificial hip joint, bilateral; Z98.1 Arthrodesis status; Z68.23 Body mass index [BMI] 23.0-23.9, adult; Z79.891 Long term (current) use of opiate analgesic; Z98.890 Other specified postprocedural states; Z88.5 Allergy status to narcotic agent; Z88.2 Allergy status to sulfonamides; Z88.8 Allergy status to other drugs, medicaments and biological substances; I50.9 Heart failure, unspecified
CPT/HCPCS: 36415; 70450; 70553; 71045; 80048; 82040; 82962; 83605; 83880; 84145; 85025; 85610; 85730; 87040; 93306; 96365; 96366; 96375; 96376; G0378; J0696; J1650; J2405; J3370; A9575; J1940; J2270; J7050

== ENCOUNTER 2020-04-26 08:20 | Outpatient (CLI) | payer MEDICARE ==
[~2020-04-26 08:20] MED LIST changes: +AMOX1TAB64 PO; +ESOM20CA PO; +FURO-93 PO; +MINE15DR2 EACHEYE
== END 2020-04-26 23:59 | disposition home or self-care (01) ==
LOC: ROC 08:20
PROVIDERS: ATTEND Radiology Radiation Oncology
DX: Z02.9 Encounter for administrative examinations, unspecified (principal)

== ENCOUNTER → 2020-06-05 | Outpatient (CLI) | payer MEDICARE ==
[2020-06-05 15:33] LABS: BASOPHILS # (AUTO) 0.04 x10^3/uL (0-0.1); BASOPHILS % (AUTO) 1 % (0-1); EOSINOPHILS # (AUTO) 0.01 x10^3/uL (0-0.4); EOSINOPHILS % (AUTO) 0 % (1-7); LYMPHOCYTES # (AUTO) 0.79 x10^3/uL (1-3.4); LYMPHOCYTES % (AUTO) 11 % (22-44); MD NO; MEAN CORPUSCULAR HEMOGLOBIN 28.4 pg (27.0-34.8); MEAN CORPUSCULAR HGB CONC 30.9 g/dL (32.4-35.8); MEAN PLATELET VOLUME 7.1 fL (7.4-10.4); MONOCYTES # (AUTO) 0.51 x10^3/uL (0.2-0.8); MONOCYTES % (AUTO) 7 % (2-9); NEUTROPHILS # (AUTO) 5.81 x10^3/uL (1.8-6.8); NEUTROPHILS % (AUTO) 81 % (42-75); PLATELET COUNT 245 x10^3/uL (130-400); RED BLOOD COUNT 3.94 x10^6/uL (3.82-5.3); RED CELL DISTRIBUTION WIDTH 16.6 % (9.6-15.2)
[2020-06-05 15:37] LABS: ALANINE AMINOTRANSFERASE 15 U/L (12-78); ALBUMIN 3.1 g/dL (3.4-5.0); ANION GAP 8 mmol/L (5-15); CALCIUM 8.7 mg/dL (8.5-10.1); CHLORIDE 108 mmol/L (98-107)
[2020-06-05 15:40] LABS: ALKALINE PHOSPHATASE 95 U/L (45-117); BILIRUBIN,TOTAL 0.5 mg/dL (0.2-1.0); CREATININE 1.17 mg/dL (0.55-1.02); TOTAL PROTEIN 7.3 g/dL (6.4-8.2)
== END | disposition home or self-care (01) ==
LOC: LAB 15:03
PROVIDERS: ATTEND Radiology Radiation Oncology
DX: C79.2 Secondary malignant neoplasm of skin (principal); R42 Dizziness and giddiness; R19.7 Diarrhea, unspecified
CPT/HCPCS: 36415; 80053; 83605; 85025

== ENCOUNTER 2020-07-05 10:55 | Outpatient (CLI) | payer MEDICARE | END 2020-07-05 23:59 | disposition home or self-care (01) | LOC: ROC 10:55 | PROVIDERS: ATTEND Radiology Radiation Oncology | DX: C79.2 Secondary malignant neoplasm of skin (principal); I13.0 Hypertensive heart and chronic kidney disease with heart failure and stage 1 through stage 4 chronic kidney disease, or unspecified chronic kidney disease; N18.3 Chronic kidney disease, stage 3 (moderate); I50.9 Heart failure, unspecified; M06.9 Rheumatoid arthritis, unspecified; G89.29 Other chronic pain; Z85.3 Personal history of malignant neoplasm of breast; Z90.710 Acquired absence of both cervix and uterus; Z90.12 Acquired absence of left breast and nipple; Z96.643 Presence of artificial hip joint, bilateral; Z96.611 Presence of right artificial shoulder joint; Z79.891 Long term (current) use of opiate analgesic; Z96.612 Presence of left artificial shoulder joint; Z79.899 Other long term (current) drug therapy | CPT/HCPCS: G0463 ==

== ENCOUNTER 2020-08-09 14:30 | Outpatient (CLI) | payer MEDICARE | END 2020-08-09 23:59 | disposition home or self-care (01) | LOC: ROC 14:30 | PROVIDERS: ATTEND Radiology Radiation Oncology | DX: C79.2 Secondary malignant neoplasm of skin (principal); I13.0 Hypertensive heart and chronic kidney disease with heart failure and stage 1 through stage 4 chronic kidney disease, or unspecified chronic kidney disease; I50.9 Heart failure, unspecified; N18.30 Chronic kidney disease, stage 3 unspecified; G89.29 Other chronic pain; M06.9 Rheumatoid arthritis, unspecified; Z79.899 Other long term (current) drug therapy; Z85.3 Personal history of malignant neoplasm of breast; Z90.710 Acquired absence of both cervix and uterus; Z79.891 Long term (current) use of opiate analgesic; Z90.12 Acquired absence of left breast and nipple | CPT/HCPCS: G0463 ==

== ENCOUNTER → 2020-08-17 | Outpatient (CLI) | payer MEDICARE ==
[~2020-08-17] MED LIST changes: +GABA600T7 PO; +TRAM100T33 PO; +VIT1CAPS42 PO
== END | disposition home or self-care (01) ==
LOC: PETCFH 12:28
PROVIDERS: ATTEND Radiology Radiation Oncology
DX: C79.2 Secondary malignant neoplasm of skin (principal); M85.88 Other specified disorders of bone density and structure, other site; Z96.642 Presence of left artificial hip joint
CPT/HCPCS: 78815; A9552